=== PATIENT | female | born 1955 | race Caucasian/White ===

== ENCOUNTER 2016-09-13 20:47 | Inpatient (IN) | payer MEDICARE, OTHER ==
[2016-09-13 20:49] VITALS: BMI 22.8
[2016-09-13] MEDS ORDERED: Morphine 4 mg/ml ISec IVP STA (21:17)
[2016-09-13] MEDS ORDERED: Sodium Chloride 0.9% 1,000 ML IV SCH (21:30)
[2016-09-13 21:38] LABS: BASO # 0.02 K/mm3 (0.0-2.0); BASO % 0.2 % (0.0-3.0); EOS # 0.6 (0.0-0.7); EOS % 5.4 % (1.5-5.0); GRAN % 57.1 % (50.0-68.0); LYMPH # 3.4 (1.2-3.4); LYMPH % 31.4 % (22.0-35.0); MEAN CELL VOLUME 81.1 fL (80.0-105.0); MEAN CORPUSCULAR HEMOGLOBIN 27.6 pg (25.0-35.0); MEAN PLATELET VOLUME 8.4 fl (7.0-11.0); MONO # 0.6 (0.1-0.6); MONO % 5.9 % (1.0-6.0); PLATELET COUNT 245 10^3/uL (120.0-450.0); RBC 4.71 10^6/uL (3.5-6.1); RED CELL DISTRIBUTION WIDTH 14.3 % (11.5-14.5); WHITE BLOOD COUNT 10.7 10^3/ul (4.5-11.0)
[2016-09-13 21:39] LABS: ALB/GLOB RATIO 1.1 (1.1-1.8); ALBUMIN 4.4 g/dL (3.0-4.8); ALT/SGPT 24 U/L (7-56); AST/SGOT 18 U/L (15-39); BLOOD UREA NITROGEN 21 mg/dL (7-21); CALCIUM 9.6 mg/dL (8.4-10.5); GFR AFRICAN-AMERICAN > 60; GFR NON-AFRICAN AMERICAN > 60
--- NOTE | 2016-09-13 21:39 | ED PDOC ---
Arrival/HPI - General Chief Complaint: Chest Pain Time Seen by Provider: 09/13/16 21:05 Historian: Patient - History of Present Illness Narrative History of Present Illness (Text): 09/13/16 21:23 A 61 year old female presents to the emergency department complaining of right upper quadrant abdominal pain for the past three days, worsening this evening. Patient reports associated nausea, vomiting and notes pain radiates to chest. She notes she doesn't eat when gets pain because is afraid to. Patient reports same pain since 4 years ago. Patient was told she has a pancreatic mass. Had a biopsy done at [facility], was told she had cancer. However, she went to [facility] in [place], and was told it wasn't cancer. Patient had no further follow up in 3 years. Denies any fevers or any other complaints at this time. Time/Duration: Other (3 days) Symptom Onset: Sudden Symptom Course: Unchanged Activities at Onset: Rest Context: Home Associated Symptoms (Text): nausea, vomiting Past Medical History - Provider Review Nursing Documentation Reviewed: Yes - Infectious Disease Hx of Infectious Diseases: None - Tetanus Immunization Tetanus Immunization: Unknown - Cardiac Hx Cardiac Disorders: No - Pulmonary Hx Respiratory Disorders: No - Neurological Hx Neurological Disorder: No - HEENT Hx HEENT Disorder: No - Renal Hx Renal Disorder: No - Endocrine/Metabolic Hx Endocrine Disorders: Yes Hx Diabetes Mellitus Type 1: Yes Hx Diabetes Mellitus Type 2: Yes - Hematological/Oncological Hx Blood Disorders: No - Integumentary Hx Dermatological Disorder: No - Musculoskeletal/Rheumatological Hx Musculoskeletal Disorders: Yes Hx Arthritis: Yes - Gastrointestinal Hx Gastrointestinal Disorders: Yes Other/Comment: RECTAL BLEEDING - Genitourinary/Gynecological Hx Genitourinary Disorders: No - Psychiatric Hx Psychophysiologic Disorder: No Hx Substance Use: No - Past Surgical History Past Surgical History: No Previous - Surgical History Other/Comment: RIGHT CHEST MARIA FERNANDA CATHETER - Anesthesia Hx Anesthesia: Yes Hx Anesthesia Reactions: No Hx Malignant Hyperthermia: No - Suicidal Assessment Feels Threatened In Home Enviroment: No Family/Social History - Physician Review Nursing Documentation Reviewed: Yes Family/Social History: No Known Family HX Smoking Status: Never Smoked Hx Alcohol Use: No Hx Substance Use: No Allergies/Home Meds Allergies/Adverse Reactions: Allergies No Known Allergies Allergy (Verified 09/13/16 20:49) Home Medications: Home Meds Medication Instructions Recorded Confirmed Metformin HCl [Metformin] 1,000 mg PO BID 05/19/12 09/13/16 Empagliflozin [Jardiance] 10 mg PO DAILY 01/24/15 09/13/16 Gabapentin 600 mg PO DAILY 01/24/15 09/13/16 Insulin Aspart, Recombinant 0 units SUBCUT ACHS 09/13/16 09/13/16 [Novolog] Review of Systems - Physician Review All systems were reviewed & negative as marked: Yes - Review of Systems Constitutional: absent: Fevers Cardiovascular: Chest Pain Gastrointestinal: Abdominal Pain, Nausea, Vomiting Physical Exam Vital Signs Reviewed: Yes Vital Signs Temp Pulse Resp BP Pulse Ox 09/14/16 00:10 70 18 118/73 97 09/13/16 22:47 73 18 115/72 99 09/13/16 20:53 98.2 F 100 H 20 120/74 99 Temperature: Afebrile Blood Pressure: Normal Pulse: Regular Respiratory Rate: Normal Appearance: Positive for: Well-Appearing, Non-Toxic, Comfortable Pain Distress: None Mental Status: Positive for: Alert and Oriented X 3 - Systems Exam Head: Present: Atraumatic, Normocephalic Pupils: Present: PERRL Extroacular Muscles: Present: EOMI Conjunctiva: Present: Normal Mouth: Present: Moist Mucous Membranes Neck: Present: Normal Range of Motion Respiratory/Chest: Present: Clear to Auscultation, Good Air Exchange. No: Respiratory Distress, Accessory Muscle Use Cardiovascular: Present: Regular Rate and Rhythm, Normal S1, S2. No: Murmurs Abdomen: Present: Tenderness (RUQ), Normal Bowel Sounds. No: Distention, Peritoneal Signs Back: Present: Normal Inspection Upper Extremity: Present: Normal Inspection. No: Cyanosis, Edema Lower Extremity: Present: Normal Inspection. No: Edema Neurological: Present: GCS=15, CN II-XII Intact, Speech Normal Skin: Present: Warm, Dry, Normal Color. No: Rashes Psychiatric: Present: Alert, Oriented x 3, Normal Insight, Normal Concentration Medical Decision Making ED Course and Treatment: 09/13/16 21:21 EKG: Ordered, reviewed, and independently interpreted the EKG. Rate : 93 BPM Rhythm : NSR Interpretation : Normal axis, no acute ischemia CT Abdomen and Pelvis With Intravenous Contrast FINDINGS: Lower thorax: Minimal atelectasis. ABDOMEN: Liver: Unremarkable. No mass. Gallbladder and bile ducts: No calcified stones. No ductal dilation. Pancreas: Several calcifications within pancreas. Apparent minimal haziness about pancreas. No definite pancreatic necrosis. No discrete peripancreatic collection. No ductal dilation. Spleen: No splenomegaly. Adrenals: 1.1 x 1.1 x 1.0 cm lesion within RIGHT adrenal gland, indeterminate by CT criteria. Kidneys and ureters: No mass. No hydronephrosis. Stomach and bowel: No definite mural thickening. Few minimally distended loops of small bowel, likely ileus. Appendix: Normal caliber. No inflammation. PELVIS: Bladder: Unremarkable. Reproductive: Several small calcifications within uterus. ABDOMEN and PELVIS: Intraperitoneal space: No significant fluid collection. No free air. Bones/joints: No acute fracture. Soft tissues: Tiny umbilical hernia containing fat. Vasculature: Minimal atherosclerotic disease of aorta. No aneurysm. Lymph nodes: No pathologically enlarged lymph nodes. IMPRESSION: 1. Probable acute on chronic pancreatitis. Correlate with amylase/lipase levels. 2. Adrenal lesion, indeterminate. Recommend nonemergent MRI. 3. Probable fibroid uterus. 4. Incidental/non-acute findings are described above. Dictated and Authenticated by: Jason Palma MD 09/13/2016 11:02 PM Eastern Time ([place] & [place]) - Lab Interpretations Lab Results: 09/13/16 21:10 09/13/16 21:10 Lab Results 09/13/16 21:10: Sodium 136, Potassium 4.1, Chloride 101, Carbon Dioxide 22, Anion Gap 17, BUN 21, Creatinine 0.6, Est GFR ( Amer) > 60, Est GFR (Non- Af Amer) > 60, Random Glucose 278 H, Calcium 9.6, Total Bilirubin 0.4, AST 18, ALT 24, Alkaline Phosphatase 101, Troponin I < 0.01, Total Protein 8.6 H, Albumin 4.4, Globulin 4.1, Albumin/Globulin Ratio 1.1, Lipase 10311 H 09/13/16 21:10: WBC 10.7, RBC 4.71, Hgb 13.0, Hct 38.2, MCV 81.1, MCH 27.6, MCHC 34.0, RDW 14.3, Plt Count 245, MPV 8.4, Gran % 57.1, Lymph % (Auto) 31.4, Hooker % (Auto) 5.9, Eos % (Auto) 5.4 H, Baso % (Auto) 0.2, Gran # 6.10, Lymph # 3.4, Hooker # 0.6, Eos # 0.6, Baso # 0.02 I have reviewed the lab results: Yes - RAD Interpretation Radiology Orders: 09/13/16 21:16 ABD & PELVIS IV CONTRAST ONLY [CT] Stat - EKG Interpretation Interpreted by ED Physician: Yes Type: 12 lead EKG - Medication Orders Current Medication Orders: Acetaminophen (Tylenol 325mg Tab) 650 mg PO Q6H PRN PRN Reason: Headache Lactated Ringer's (Lactated Ringer's) 1,000 mls @ 100 mls/hr IV .Q10H [facility] Last Admin: 09/16/16 09:57 Dose: 100 mls/hr Insulin Human Lispro (Humalog Low) 0 units SC ACHS [facility] PRN Reason: Protocol Last Admin: 09/15/16 21:48 Dose: Not Given Non-Admin Reason: Blood Sugar Parameter Morphine Sulfate (Morphine) 2 mg IVP Q6H PRN PRN Reason: Pain, moderate (4-7) Ondansetron HCl (Zofran Inj) 4 mg IVP Q6H PRN PRN Reason: Nausea/Vomiting Last Admin: 09/16/16 09:51 Dose: 4 mg Pantoprazole Sodium (Protonix Inj) 40 mg IVP DAILY [facility] Last Admin: 09/16/16 10:04 Dose: 40 mg Discontinued Medications Gadodiamide (Omniscan No Safepak) Confirm Administered Dose 4,305 mg IV .STK- MED ONE Stop: 09/15/16 10:28 Sodium Chloride (Sodium Chloride 0.9%) 1,000 mls @ 100 mls/hr IV .Q10H [facility] Last Admin: 09/13/16 22:04 Dose: 100 mls/hr Dextrose/Lactated Ringer's (Dextrose 5%/Lactated Ringer's) 1,000 mls @ 200 mls/ hr IV .Q5H [facility] Lactated Ringer's (Lactated Ringer's) 1,000 mls @ 200 mls/hr IV .Q5H [facility] Last Admin: 09/14/16 11:17 Dose: 200 mls/hr Lactated Ringer's (Lactated Ringer's) 1,000 mls @ 150 mls/hr IV .Q6H40M [facility] Last Admin: 09/15/16 02:50 Dose: 150 mls/hr Iohexol (Omnipaque 350 100 Ml) Confirm Administered Dose 350 mg .ROUTE .STK-MED ONE Stop: 09/13/16 21:58 Morphine Sulfate (Morphine) 4 mg IVP STAT STA Stop: 09/13/16 21:18 Last Admin: 09/13/16 22:03 Dose: 4 mg Re-Assess: JIMENA Pain Assessment Document 09/13/16 23:03 JOL (Rec: 09/13/16 23:50 JOL [id number]) Pain Reassessment Is this a pain reassessment? Yes Sleep Is patient sleeping during reassessment? No Presence of Pain Presence of Pain Yes Description Intensity of Pain at present 2 Ondansetron HCl (Zofran Inj) 4 mg IVP ONCE ONE Stop: 09/13/16 21:18 Last Admin: 09/13/16 22:03 Dose: 4 mg - Scribe Statement The provider has reviewed the documentation as recorded by the Gregg Fisher Provider Scribe Attestation: All medical record entries made by the Gregg were at my direction and personally dictated by me. I have reviewed the chart and agree that the record accurately reflects my personal performance of the history, physical exam, medical decision making, and the department course for this patient. I have also personally directed, reviewed, and agree with the discharge instructions and disposition. Disposition/Present on Arrival - Present on Arrival Any Indicators Present on Arrival: No History of DVT/PE: No History of Uncontrolled Diabetes: No Urinary Catheter: No History of Decub. Ulcer: No History Surgical Site Infection Following: None - Disposition Have Diagnosis and Disposition been Completed?: Yes Diagnosis: Pancreatitis Disposition: HOSPITALIZED Disposition Time: 22:35 Condition: STABLE
[2016-09-13] MEDS ORDERED: Iohexol 350 MG/100 ML VIAL ONE (21:57)
[2016-09-13 22:01] LABS: TROPONIN I < 0.01 ng/mL
[2016-09-13 22:12] LABS: LIPASE 13016 U/L (23-300)
--- NOTE | 2016-09-13 23:02 | CT ---
EXAM: CT Abdomen and Pelvis With Intravenous Contrast CLINICAL HISTORY: 61 years old, female; Pain; Abdominal pain; Localized; Upper TECHNIQUE: Axial computed tomography images of the abdomen and pelvis with intravenous contrast. This CT exam was performed using one or more of the following dose reduction techniques: automated exposure control, adjustment of the mA and/or kV according to patient size, and/or use of iterative reconstruction technique. Coronal and sagittal reformatted images were created and reviewed. CONTRAST: 100 mL of OMNI administered intravenously. COMPARISON: No relevant prior studies available. FINDINGS: Lower thorax: Minimal atelectasis. ABDOMEN: Liver: Unremarkable. No mass. Gallbladder and bile ducts: No calcified stones. No ductal dilation. Pancreas: Several calcifications within pancreas. Apparent minimal haziness about pancreas. No definite pancreatic necrosis. No discrete peripancreatic collection. No ductal dilation. Spleen: No splenomegaly. Adrenals: 1.1 x 1.1 x 1.0 cm lesion within RIGHT adrenal gland, indeterminate by CT criteria. Kidneys and ureters: No mass. No hydronephrosis. Stomach and bowel: No definite mural thickening. Few minimally distended loops of small bowel, likely ileus. Appendix: Normal caliber. No inflammation. PELVIS: Bladder: Unremarkable. Reproductive: Several small calcifications within uterus. ABDOMEN and PELVIS: Intraperitoneal space: No significant fluid collection. No free air. Bones/joints: No acute fracture. Soft tissues: Tiny umbilical hernia containing fat. Vasculature: Minimal atherosclerotic disease of aorta. No aneurysm. Lymph nodes: No pathologically enlarged lymph nodes. IMPRESSION: 1. Probable acute on chronic pancreatitis. Correlate with amylase/lipase levels. 2. Adrenal lesion, indeterminate. Recommend nonemergent MRI. 3. Probable fibroid uterus. 4. Incidental/non-acute findings are described above.
[2016-09-13] MEDS ORDERED: Dextrose 5%/Lactated Ringer's 1,000 ML IV SCH (23:06)
--- NOTE | 2016-09-13 23:08 | CP.PCM.HP ---
<Kiley Boudreaux - Last Filed: 09/13/16 23:49> History of Present Illness - History of Present Illness History of Present Illness: CC: abdominal pain for 3 days HPI: 61 yo female PMHx of IDDM presents with abdominal pain worsening over 3 days. Patient reports pain has been progressively becoming worse and prior to presentation to ER pain was 10/10. She had two nonbloody nonbilious episodes of emesis. Patient reports she is afraid to eat. She denies any associated diarrhea or constipation. Patient reports that on her last visit to [facility] she was diagnosed with pancreatic ca and had a portacath placed; however upon receiving a second opinion at [facility] she was told she does not have pancreatic ca and thus did not have any chemotherapy. Patient denied fever, chills, weight changes, change in vision/hearing, sore throat, chest pain, palpitations, SOB, cough, bowel/bladder complaints, pain/swelling in legs, sick contacts, recent illnesses, recent travel. Last meal: this afternoon Last BM: this AM PMD: Garett Lepe- last seen 2 months ago PMHx: IDDM and diverticulosis?hemorrhoids? PSurgHx: denies PProcedures: Colonoscopy 2016- patient does not recall if there were any polyps found Family Hx: denies hx of HI, CVA, ca Social Hx: denies EtOH abuse, tobacco abuse, drug abuse; lives with daughter; retired Meds: Jardiance po daily, Insulin, Metformin 500mg po bid Allergies: NKDA ROS: denied: fever, chills, weight changes, change in vision/hearing, sore throat, chest pain, palpitations, SOB, cough, bowel/bladder complaints, pain/swelling in legs, sick contacts, recent illnesses, recent travel admitted: abdominal pain, nausea, vomiting, headache, dizziness, weakness Present on Admission - Present on Admission Any Indicators Present on Admission: No Review of Systems - Constitutional Constitutional: As Per HPI. absent: Chills, Fever - EENT Eyes: As Per HPI. absent: Blurred Vision Ears: As Per HPI, Dizziness Nose/Mouth/Throat: As Per HPI. absent: Sore Throat - Cardiovascular Cardiovascular: As Per HPI. absent: Chest Pain, Dyspnea, Dyspnea on Exertion, Edema, Leg Edema, Palpitations - Respiratory Respiratory: As Per HPI. absent: Cough, Dyspnea, Dyspnea on Exertion, Wheezing - Gastrointestinal Gastrointestinal: As Per HPI, Abdominal Pain, Cramping, Hematochezia, Nausea, Vomiting. absent: Constipation, Diarrhea, Melena - Genitourinary Genitourinary: As Per HPI. absent: Dysuria, Hematuria, Pyuria - Musculoskeletal Musculoskeletal: As Per HPI. absent: Numbness, Tingling - Integumentary Integumentary: As Per HPI. absent: Dry Skin, Rash - Neurological Neurological: As Per HPI. absent: Dizziness, Numbness, Tingling, Weakness - Psychiatric Psychiatric: As Per HPI. absent: Anxiety, Depression - Endocrine Endocrine: As Per HPI. absent: Polydipsia, Polyphagia, Polyuria - Hematologic/Lymphatic Hematologic: As Per HPI. absent: Easy Bleeding, Easy Bruising, Lymphadenopathy Past Patient History - Infectious Disease Hx of Infectious Diseases: None - Tetanus Immunizations Tetanus Immunization: Unknown - Past Medical History & Family History Past Medical History?: Yes - Past Social History Smoking Status: Never Smoked - CARDIAC Hx Cardiac Disorders: No - PULMONARY Hx Respiratory Disorders: No - NEUROLOGICAL Hx Neurological Disorder: No - HEENT Hx HEENT Problems: No - RENAL Hx Chronic Kidney Disease: No - ENDOCRINE/METABOLIC Hx Endocrine Disorders: Yes Hx Diabetes Mellitus Type 1: Yes Hx Diabetes Mellitus Type 2: Yes - HEMATOLOGICAL/ONCOLOGICAL Hx Blood Disorders: No - INTEGUMENTARY Hx Dermatological Problems: No - MUSCULOSKELETAL/RHEUMATOLOGICAL Hx Musculoskeletal Disorders: Yes Hx Arthritis: Yes - GASTROINTESTINAL Hx Gastrointestinal Disorders: Yes Other/Comment: RECTAL BLEEDING - GENITOURINARY/GYNECOLOGICAL Hx Genitourinary Disorders: No - PSYCHIATRIC Hx Psychophysiologic Disorder: No Hx Substance Use: No - SURGICAL HISTORY Other/Comment: RIGHT CHEST MARIA FERNANDA CATHETER - ANESTHESIA Hx Anesthesia: Yes Hx Anesthesia Reactions: No Hx Malignant Hyperthermia: No Meds Allergies/Adverse Reactions: Allergies Allergy/AdvReac Type Severity Reaction Status Date / Time No Known Allergies Allergy Verified 09/13/16 20:49 Physical Exam - Constitutional Appears: In Acute Distress - Head Exam Head Exam: ATRAUMATIC, NORMOCEPHALIC - Eye Exam Eye Exam: EOMI, Normal appearance, PERRL. absent: Conjunctival injection, Scleral icterus Pupil Exam: NORMAL ACCOMODATION - ENT Exam ENT Exam: Mucous Membranes Dry - Neck Exam Neck exam: Positive for: Full Rom, Normal Inspection - Respiratory Exam Respiratory Exam: Clear to Auscultation Bilateral, NORMAL BREATHING PATTERN. absent: Accessory Muscle Use, Rales, Rhonchi, Wheezes, Respiratory Distress - Cardiovascular Exam Cardiovascular Exam: Tachycardia, REGULAR RHYTHM, +S1, +S2. absent: Systolic Murmur - GI/Abdominal Exam GI & Abdominal Exam: Guarding, Normal Bowel Sounds, Soft, Tenderness (RUQ and RLQ to light palpation). absent: Distended, Firm, Hernia - Extremities Exam Extremities exam: Positive for: normal capillary refill, normal inspection, pedal pulses present. Negative for: pedal edema - Neurological Exam Neurological exam: Alert, Oriented x3 - Psychiatric Exam Psychiatric exam: Normal Affect, Normal Mood - Skin Skin Exam: Dry, Intact, Normal Color, Warm Results - Vital Signs Recent Vital Signs: Last Vital Signs Temp 98.2 F 09/13/16 20:53 Pulse 100 H 09/13/16 20:53 Resp 20 09/13/16 20:53 BP 120/74 09/13/16 20:53 Pulse Ox 99 09/13/16 20:53 - Labs Result Diagrams: 09/13/16 21:10 09/13/16 21:10 Assessment & Plan - Assessment and Plan (Free Text) Assessment: 61 yo female PMHx of IDDM presents with abdominal pain worsening over 3 days Plan: Acute pancreatitis -NPO -CT Abd/pelvis with IV contrast: acute on chronic pancreatitis -Lipase [id number] -f/u amylase -trend BUN -LR @ 200cc/hr -Morphine 2mg ivp q6 prn pain -f/u LDH to calculate Hull's score on admission -f/u Hull's score in 48hrs -f/u TG -GI consult: Dr. Hudson- f/u reccs Hx of IDDM -Accucheck -low dose RISS as patient is NPO and on LR -adjust medications as needed -f/u HgbA1c Hx of Diverticulosis vs Hemorrhoids -patient is unsure of history but reports she sometimes has blood in stool -H&H stable -f/u FOBT -GI consult: Dr. Hudson- f/u reccs Adrenal lesion -CT Abd/pelvis with IV contrast: adrenal lesion- recommend nonemergent MRI [1.1 x 1.1 x 1.0cm lesion within RIGHT adrenal gland] -f/u outpatient Probable fibroid uterus -CT Abd/pelvis with IV contrast: probable fibroid uterus [several small calcifications within uterus] -f/u outpatient PPX -NPO -LR @ 200cc/hr -Protonix 40mg ivp daily -SCDs Case discussed with Dr. Shannan Boudreaux PGY2 Pager: <Mo Campbell - Last Filed: 09/14/16 03:15> Results - Vital Signs Recent Vital Signs: Last Vital Signs Temp 98.0 F 09/14/16 01:57 Pulse 75 09/14/16 01:57 Resp 20 09/14/16 01:57 BP 117/74 09/14/16 01:57 Pulse Ox 98 09/14/16 01:22 - Labs Result Diagrams: 09/13/16 21:10 09/13/16 21:10 Labs: Laboratory Results - last 24 hr 09/14/16 00:10 Lactate Dehydrogenase 699 Attending/Attestation - Attestation I have personally seen and examined this patient.: Yes I have fully participated in the care of the patient.: Yes I have reviewed all pertinent clinical information: Yes Notes (Text): 09/14/16 03:14 Patient was seen when she was in [id number]. Agree with history , physical examination, assessment and plan.
[2016-09-13] MEDS ORDERED: Morphine 2 mg/ml ISec IVP PRN (23:09)
[2016-09-14] MEDS ORDERED: Lactated Ringer's 1,000 ML IV SCH (06:08)
[2016-09-14] MEDS: Insulin Lispro (humaLOG) LOW Coverage SC SCH ×4 (07:30→22:33)
[2016-09-14 07:49] LABS: BASO # 0.01 K/mm3 (0.0-2.0); BASO % 0.1 % (0.0-3.0); EOS # 0.5 (0.0-0.7); EOS % 6.4 % (1.5-5.0); GRAN # 4.38 (1.4-6.5); GRAN % 57.4 % (50.0-68.0); HEMOGLOBIN 11.3 gm/dL (12.0-16.0); LYMPH # 2.3 (1.2-3.4); LYMPH % 29.7 % (22.0-35.0); MEAN CELL VOLUME 81.3 fL (80.0-105.0); MEAN CORPUSCULAR HEMOGLOBIN 26.7 pg (25.0-35.0); MEAN CORPUSCULAR HGB CONC 32.8 g/dl (31.0-37.0); MEAN PLATELET VOLUME 8.7 fl (7.0-11.0); MONO # 0.5 (0.1-0.6); MONO % 6.4 % (1.0-6.0); PLATELET COUNT 228 10^3/uL (120.0-450.0); RBC 4.23 10^6/uL (3.5-6.1); RED CELL DISTRIBUTION WIDTH 14.4 % (11.5-14.5); WHITE BLOOD COUNT 7.6 10^3/ul (4.5-11.0)
[2016-09-14 08:10] LABS: ALBUMIN 3.5 g/dL (3.0-4.8); ALT/SGPT 17 U/L (7-56); AST/SGOT 15 U/L (15-39); BLOOD UREA NITROGEN 14 mg/dL (7-21); CALCIUM 8.5 mg/dL (8.4-10.5); GFR AFRICAN-AMERICAN > 60; GFR NON-AFRICAN AMERICAN > 60; MAGNESIUM 1.9 mg/dL (1.7-2.2)
--- NOTE | 2016-09-14 10:25 | CP.PCM.CON ---
History of Present Illness - History of Present Illness History of Present Illness: CC: Abdominal pain HPI: 61 year old female who presents for evaluation of abdominal pain. She says the pain is in the epigastric area. It is severe, now 6/10 improved a bit. Started 2-3 days ago. She did have a few episodes of vomiting. She had prior episode in 2012. She had questionable diagnosis of follicular lymphoma but this was worked up at [facility] and not found. She is feeling a bit better. denies etoh abuse. Denies chest pain or sob. No fever. No bleeding. No family history of pancreatitis. No prior abdominal surgery PMHx DM, Diverticulosis, H/o pancreatitis Pshx denies FHx denies pancreatic disease SHx no drinking, smoking, or drugs ROS A comprehensive review of systems was performed and was negative apart from HPI Past Patient History - Infectious Disease Hx of Infectious Diseases: None - Tetanus Immunizations Tetanus Immunization: Unknown - Past Medical History & Family History Past Medical History?: Yes - Past Social History Smoking Status: Never Smoked - CARDIAC Hx Cardiac Disorders: No - PULMONARY Hx Respiratory Disorders: No - NEUROLOGICAL Hx Neurological Disorder: No - HEENT Hx HEENT Problems: No - RENAL Hx Chronic Kidney Disease: No - ENDOCRINE/METABOLIC Hx Endocrine Disorders: Yes Hx Diabetes Mellitus Type 1: Yes Hx Diabetes Mellitus Type 2: Yes - HEMATOLOGICAL/ONCOLOGICAL Hx Blood Disorders: No - INTEGUMENTARY Hx Dermatological Problems: No - MUSCULOSKELETAL/RHEUMATOLOGICAL Hx Falls: No - GASTROINTESTINAL Hx Gastrointestinal Disorders: Yes Other/Comment: RECTAL BLEEDING - GENITOURINARY/GYNECOLOGICAL Hx Genitourinary Disorders: No - PSYCHIATRIC Hx Psychophysiologic Disorder: No - SURGICAL HISTORY Hx Surgeries: Yes Other/Comment: RIGHT CHEST MARIA FERNANDA CATHETER, that was since removed - ANESTHESIA Hx Anesthesia: Yes Hx Anesthesia Reactions: No Hx Malignant Hyperthermia: No Meds Allergies/Adverse Reactions: Allergies Allergy/AdvReac Type Severity Reaction Status Date / Time No Known Allergies Allergy Verified 09/13/16 20:49 - Medications Medications: Current Medications Lactated Ringer's (Lactated Ringer's) 1,000 mls @ 200 mls/hr IV .Q5H [facility] Insulin Human Lispro (Humalog Low) 0 units SC ACHS [facility] PRN Reason: Protocol Morphine Sulfate (Morphine) 2 mg IVP Q6H PRN PRN Reason: Pain, moderate (4-7) Ondansetron HCl (Zofran Inj) 4 mg IVP Q6H PRN PRN Reason: Nausea/Vomiting Pantoprazole Sodium (Protonix Inj) 40 mg IVP DAILY [facility] Physical Exam - Constitutional Appears: Well, No Acute Distress - Head Exam Head Exam: ATRAUMATIC, NORMOCEPHALIC - Eye Exam Eye Exam: Normal appearance Pupil Exam: PERRL - ENT Exam ENT Exam: Mucous Membranes Moist, Normal Oropharynx - Respiratory Exam Respiratory Exam: Clear to Auscultation Bilateral, NORMAL BREATHING PATTERN - Cardiovascular Exam Cardiovascular Exam: REGULAR RHYTHM, +S1, +S2 - GI/Abdominal Exam GI & Abdominal Exam: Soft, Tenderness - Neurological Exam Neurological exam: Alert, Oriented x3 - Psychiatric Exam Psychiatric exam: Normal Affect, Normal Mood - Skin Skin Exam: Dry, Normal Color, Warm Results - Vital Signs Recent Vital Signs: Last Vital Signs Temp 97.6 F 09/14/16 08:27 Pulse 72 09/14/16 08:27 Resp 20 09/14/16 08:27 BP 93/58 L 09/14/16 08:27 Pulse Ox 98 09/14/16 08:27 - Labs Result Diagrams: 09/14/16 07:42 09/14/16 07:42 Labs: Laboratory Results - last 24 hr 09/14/16 09/14/16 09/14/16 00:10 07:42 07:42 WBC 7.6 D RBC 4.23 Hgb 11.3 L Hct 34.4 L MCV 81.3 MCH 26.7 MCHC 32.8 RDW 14.4 Plt Count 228 MPV 8.7 Gran % 57.4 Lymph % (Auto) 29.7 Reeves % (Auto) 6.4 H Eos % (Auto) 6.4 H Baso % (Auto) 0.1 Gran # 4.38 Lymph # 2.3 Reeves # 0.5 Eos # 0.5 Baso # 0.01 Sodium 139 Potassium 3.9 Chloride 108 H Carbon Dioxide 21 Anion Gap 14 BUN 14 Creatinine 0.5 Est GFR ( Amer) > 60 Est GFR (Non-Af Amer) > 60 Random Glucose 154 H Calcium 8.5 Phosphorus 4.2 Magnesium 1.9 Total Bilirubin 0.4 AST 15 ALT 17 Alkaline Phosphatase 78 Lactate Dehydrogenase 699 Total Protein 6.9 Albumin 3.5 Globulin 3.4 Albumin/Globulin Ratio 1.0 L Assessment & Plan - Assessment and Plan (Free Text) Assessment: 61 year old female with h/o pancreatitis, dm, diverticulosis admitted with acute pancreatitis. 1. Acute pancreatitis Plan: -npo -iv hydration with lr at 200cc/hr -bun downtrending -us abdomen to r/o gallstones -triglycerides should be checked -check igg4 -uncertain etiology -consider mrcp to eval for pancreas divisum -supportive measures -when feeling better, advance diet to low fat as tolerated - Date & Time Date: 09/14/16 Time: 10:25
--- NOTE | 2016-09-14 10:59 | CARD ---
APPROVED REPORT EKG Measurement Heart [id number] CO [id number] [id number] <Conclusion> Normal sinus rhythm Possible Left atrial enlargement NSSTW changes
[2016-09-14] MEDS: Lactated Ringer's 1,000 ML IV SCH ×2 (16:09→19:59)
--- NOTE | 2016-09-14 20:32 | CP.PCM.PN ---
Subjective - Date & Time of Evaluation Date of Evaluation: 09/14/16 Time of Evaluation: 10:50 Objective - Vital Signs/Intake and Output Vital Signs (last 24 hours): Temp Pulse Resp BP Pulse Ox 98 F 75 16 101/66 98 09/14/16 16:51 09/14/16 16:51 09/14/16 16:51 09/14/16 16:51 09/14/16 16:51 Intake and Output: 09/14/16 09/15/16 18:59 06:59 Intake Total 0 Balance 0 - Medications Medications: Current Medications Lactated Ringer's (Lactated Ringer's) 1,000 mls @ 150 mls/hr IV .Q6H40M [facility] Last Admin: 09/14/16 19:59 Dose: 150 mls/hr Insulin Human Lispro (Humalog Low) 0 units SC ACHS [facility] PRN Reason: Protocol Last Admin: 09/14/16 18:21 Dose: Not Given Morphine Sulfate (Morphine) 2 mg IVP Q6H PRN PRN Reason: Pain, moderate (4-7) Ondansetron HCl (Zofran Inj) 4 mg IVP Q6H PRN PRN Reason: Nausea/Vomiting Pantoprazole Sodium (Protonix Inj) 40 mg IVP DAILY [facility] Last Admin: 09/14/16 11:11 Dose: 40 mg - Labs Labs: 09/14/16 07:42 09/14/16 07:42
--- NOTE | 2016-09-14 22:48 | CP.PCM.PN ---
<Dinh Carpenter - Last Filed: 09/14/16 22:38> Subjective - Date & Time of Evaluation Date of Evaluation: 09/14/16 Time of Evaluation: 22:38 - Subjective Subjective: Pt seen and examined at bedside. Pt accompanied by her family at bedside. Pt states she has mild abdominal pain. Denies CP, SOB, N/V/D. Objective - Vital Signs/Intake and Output Vital Signs (last 24 hours): Temp Pulse Resp BP Pulse Ox 98 F 75 16 101/66 98 09/14/16 16:51 09/14/16 16:51 09/14/16 16:51 09/14/16 16:51 09/14/16 16:51 Intake and Output: 09/14/16 09/15/16 18:59 06:59 Intake Total 0 Balance 0 - Medications Medications: Current Medications Lactated Ringer's (Lactated Ringer's) 1,000 mls @ 150 mls/hr IV .Q6H40M [facility] Last Admin: 09/14/16 19:59 Dose: 150 mls/hr Insulin Human Lispro (Humalog Low) 0 units SC ACHS [facility] PRN Reason: Protocol Last Admin: 09/14/16 22:33 Dose: Not Given Morphine Sulfate (Morphine) 2 mg IVP Q6H PRN PRN Reason: Pain, moderate (4-7) Ondansetron HCl (Zofran Inj) 4 mg IVP Q6H PRN PRN Reason: Nausea/Vomiting Pantoprazole Sodium (Protonix Inj) 40 mg IVP DAILY [facility] Last Admin: 09/14/16 11:11 Dose: 40 mg - Labs Labs: 09/14/16 07:42 09/14/16 07:42 - Constitutional Appears: Non-toxic, No Acute Distress - Head Exam Head Exam: ATRAUMATIC, NORMAL INSPECTION, NORMOCEPHALIC - ENT Exam ENT Exam: Mucous Membranes Moist - Respiratory Exam Respiratory Exam: Clear to Ausculation Bilateral, NORMAL BREATHING PATTERN. absent: Rales, Rhonchi, Wheezes - Cardiovascular Exam Cardiovascular Exam: RRR, +S1, +S2 - GI/Abdominal Exam GI & Abdominal Exam: Soft, Tenderness (Epigastric), Normal Bowel Sounds - Extremities Exam Extremities Exam: absent: Calf Tenderness, Pedal Edema - Neurological Exam Neurological Exam: Alert, Awake, Oriented x3 - Psychiatric Exam Psychiatric exam: Normal Affect, Normal Mood - Skin Skin Exam: Intact, Normal Color, Warm Assessment and Plan - Assessment and Plan (Free Text) Plan: 61 y/o F with PMH of chronic pancreatitis IDDM presents with acute pancreatitis. Pt will remain on LR for IVF. Pt seen by GI who recommend US abdomen and MRCP. 1. Acute pancreatitis -Liquid diet, advance as tolerated -Repeat lipase in AM -LR @ 150 cc/hr -IGG4 ordered -Continue pain management with -GI consult: Dr. Hudson 2. IDDM -ISS 3. Adrenal lesion -CT Abd/pelvis with IV contrast: right adrenal lesion- recommend nonemergent MRI -f/u outpatient 4. Fibroid uterus -CT Abd/pelvis with IV contrast: probable fibroid uterus -f/u outpatient 5. PPX -Protonix -SCDs Seen, reviewed, and discussed with attending Jayden PGY-2 <Mei Davis - Last Filed: 09/15/16 20:48> Objective - Vital Signs/Intake and Output Vital Signs (last 24 hours): Temp Pulse Resp BP Pulse Ox 97.8 F 71 18 112/65 96 09/15/16 16:34 09/15/16 16:34 09/15/16 16:34 09/15/16 16:34 09/15/16 16:34 Intake and Output: 09/15/16 09/16/16 18:59 06:59 Intake Total 2069 Balance 2069 - Medications Medications: Current Medications Acetaminophen (Tylenol 325mg Tab) 650 mg PO Q6H PRN PRN Reason: Headache Lactated Ringer's (Lactated Ringer's) 1,000 mls @ 100 mls/hr IV .Q10H [facility] Last Admin: 09/15/16 11:47 Dose: 100 mls/hr Insulin Human Lispro (Humalog Low) 0 units SC ACHS [facility] PRN Reason: Protocol Last Admin: 09/15/16 16:59 Dose: 3 units Morphine Sulfate (Morphine) 2 mg IVP Q6H PRN PRN Reason: Pain, moderate (4-7) Ondansetron HCl (Zofran Inj) 4 mg IVP Q6H PRN PRN Reason: Nausea/Vomiting Pantoprazole Sodium (Protonix Inj) 40 mg IVP DAILY [facility] Last Admin: 09/15/16 11:09 Dose: 40 mg - Labs Labs: 09/15/16 07:00 09/15/16 07:00 Attending/Attestation - Attestation I have personally seen and examined this patient.: Yes I have fully participated in the care of the patient.: Yes I have reviewed all pertinent clinical information, including history, physical exam and plan: Yes Notes (Text): 09/15/16 20:46 Patient seen and examined at bedside. Admission notes, labs, vitals and orders reviewed. Symptoms are slightly better but still has some abdominal pain. Previous admission notes and work up reviewed, case d/w GI service. Plan to advance diet slowly and obtain an MRCP in AM. Agree with the plan of care outlined by the resident.
[2016-09-15] MEDS: Lactated Ringer's 1,000 ML IV SCH ×3 (02:50→21:47)
[2016-09-15 08:00] LABS: HEMOGLOBIN 11.9 gm/dL (12.0-16.0); MEAN CELL VOLUME 81.5 fL (80.0-105.0); MEAN CORPUSCULAR HEMOGLOBIN 26.8 pg (25.0-35.0); MEAN CORPUSCULAR HGB CONC 32.9 g/dl (31.0-37.0); MEAN PLATELET VOLUME 8.6 fl (7.0-11.0); RBC 4.44 10^6/uL (3.5-6.1); RED CELL DISTRIBUTION WIDTH 14.3 % (11.5-14.5); WHITE BLOOD COUNT 7.8 10^3/ul (4.5-11.0)
[2016-09-15] MEDS: Insulin Lispro (humaLOG) LOW Coverage SC SCH ×4 (08:05→21:48)
[2016-09-15] MEDS ORDERED: Gadodiamide 287 MG/ML VIAL (15ML) IV ONE (10:27)
[2016-09-15 10:44] LABS: ALB/GLOB RATIO 1.1 (1.1-1.8); ALBUMIN 3.8 g/dL (3.0-4.8); ALT/SGPT 17 U/L (7-56); AST/SGOT 27 U/L (15-39); BLOOD UREA NITROGEN 10 mg/dL (7-21); CALCIUM 9.1 mg/dL (8.4-10.5); GFR AFRICAN-AMERICAN > 60; GFR NON-AFRICAN AMERICAN > 60
--- NOTE | 2016-09-15 11:39 | CP.PCM.PN ---
<Hammad Carney - Last Filed: 09/15/16 11:35> Subjective - Date & Time of Evaluation Date of Evaluation: 09/15/16 Time of Evaluation: 07:15 - Subjective Subjective: PGY5 GI Fellow Progress Note Patient seen and examined bedside this morning. The patient states that she is feeling slightly better but continues to have epigastric abdominal pain. She denies any nausea, vomiting. Eager to try more liquids today. No BM overnight. 12 system ROS performed and negative except where stated. Objective - Vital Signs/Intake and Output Vital Signs (last 24 hours): Temp Pulse Resp BP Pulse Ox 97.9 F 70 20 115/67 98 09/15/16 08:00 09/15/16 08:00 09/15/16 08:00 09/15/16 08:00 09/15/16 08:00 Intake and Output: 09/15/16 09/15/16 06:59 18:59 Intake Total 420 Output Total 1 Balance 419 - Medications Medications: Current Medications Lactated Ringer's (Lactated Ringer's) 1,000 mls @ 100 mls/hr IV .Q10H [facility] Insulin Human Lispro (Humalog Low) 0 units SC ACHS [facility] PRN Reason: Protocol Last Admin: 09/15/16 08:05 Dose: Not Given Morphine Sulfate (Morphine) 2 mg IVP Q6H PRN PRN Reason: Pain, moderate (4-7) Ondansetron HCl (Zofran Inj) 4 mg IVP Q6H PRN PRN Reason: Nausea/Vomiting Pantoprazole Sodium (Protonix Inj) 40 mg IVP DAILY [facility] Last Admin: 09/15/16 11:09 Dose: 40 mg - Labs Labs: 09/15/16 07:00 09/15/16 07:00 - Constitutional Appears: Non-toxic, No Acute Distress - Eye Exam Eye Exam: EOMI, PERRL - ENT Exam ENT Exam: Mucous Membranes Moist - Respiratory Exam Respiratory Exam: Clear to Ausculation Bilateral. absent: Rales, Rhonchi, Wheezes - Cardiovascular Exam Cardiovascular Exam: RRR, +S1, +S2 - GI/Abdominal Exam GI & Abdominal Exam: Soft, Tenderness (epigastric), Normal Bowel Sounds. absent : Distended, Firm, Guarding, Rigid, Organomegaly - Extremities Exam Extremities Exam: Normal Inspection. absent: Pedal Edema - Neurological Exam Neurological Exam: Alert, Awake, Oriented x3 - Psychiatric Exam Psychiatric exam: Normal Affect, Normal Mood - Skin Skin Exam: Dry, Warm Assessment and Plan - Assessment and Plan (Free Text) Assessment: Patient is a 61yo female with PMHx significant for pancreatitis, DM, diverticulosis who was admitted with 3 days of abdominal pain. -Acute pancreatitis Plan: -Advance to clear liquid diet -Continue IVF with LR@100cc/hr as ordered -Plan for MRCP today, R/O pancreas divisum -Awaiting AM lab work: TGs, CBC, CMP -IgG4 sent -U/S performed - no evidence of gallstones per my interpretation -Supportive care <Keny Sung - Last Filed: 09/15/16 13:49> Objective - Vital Signs/Intake and Output Vital Signs (last 24 hours): Temp Pulse Resp BP Pulse Ox 97.9 F 70 20 115/67 98 09/15/16 08:00 09/15/16 08:00 09/15/16 08:00 09/15/16 08:00 09/15/16 08:00 Intake and Output: 09/15/16 09/15/16 06:59 18:59 Intake Total 420 Output Total 1 Balance 419 - Medications Medications: Current Medications Acetaminophen (Tylenol 325mg Tab) 650 mg PO Q6H PRN PRN Reason: Headache Lactated Ringer's (Lactated Ringer's) 1,000 mls @ 100 mls/hr IV .Q10H [facility] Last Admin: 09/15/16 11:47 Dose: 100 mls/hr Insulin Human Lispro (Humalog Low) 0 units SC ACHS [facility] PRN Reason: Protocol Last Admin: 09/15/16 11:46 Dose: Not Given Morphine Sulfate (Morphine) 2 mg IVP Q6H PRN PRN Reason: Pain, moderate (4-7) Ondansetron HCl (Zofran Inj) 4 mg IVP Q6H PRN PRN Reason: Nausea/Vomiting Pantoprazole Sodium (Protonix Inj) 40 mg IVP DAILY [facility] Last Admin: 09/15/16 11:09 Dose: 40 mg - Labs Labs: 09/15/16 07:00 09/15/16 07:00 Attending/Attestation - Attestation I have personally seen and examined this patient.: Yes I have fully participated in the care of the patient.: Yes I have reviewed all pertinent clinical information, including history, physical exam and plan: Yes Notes (Text): 09/15/16 13:47 61 year old female with h/o pancreatitis, dm, diverticulosis admitted with acute pancreatitis. 1. Acute pancreatitis Plan: -s/p aggressive iv hydration -advance diet to low fat as tolerated -us negative for gallstones -MRI with no evidence of pancreatic mass -reviewed MRCP myself, although not reported, the dorsal and ventral pancreatic duct do not appear to be continuous, raising the possibility of pancreas divisum , although not definitive -triglycerides are normal -await igg4 -recommend outpatient EUS
--- NOTE | 2016-09-15 12:56 | US ---
HISTORY: r/o gallstones COMPARISON: CT abdomen pelvis 09/13/2016 TECHNIQUE: Sonographic evaluation of the abdomen. FINDINGS: LIVER: Liver is unremarkable in echogenicity. No focal liver mass is identified. No intrahepatic biliary ductal dilatation is identified. Portal vein is patent with normal hepatopetal flow. GALLBLADDER: The gallbladder is physiologically distended. No gallstones, gallbladder wall thickening, or pericholecystic fluid is identified.No sonographic Fagan's sign was appreciated during the exam. COMMON BILE DUCT: Normal in caliber measuring 0.3 cm. PANCREAS: The visualized portions are mildly heterogeneous in echogenicity. Calcifications noted in the pancreas. The remainder of the pancreas is obscured by bowel gas. RIGHT KIDNEY: Measures 10.5cm. Unremarkable in echogenicity. No shadowing renal stone, cyst, or hydronephrosis is identified AORTA: No aneurysmal dilatation of the visualized portions. IVC: Visualized portions are unremarkable.. OTHER FINDINGS: None. IMPRESSION: Mildly heterogeneous pancreas, nonspecific. Calcifications noted in the pancreas, likely sequelae of chronic pancreatitis.
--- NOTE | 2016-09-15 13:30 | MRI ---
PROCEDURE: MRI Abdomen with and without contrast plus MRCP HISTORY: Acute pancreatitis COMPARISON: None available. TECHNIQUE: Multisequence, multiplanar MR images of the abdomen with and without gadolinium contrast enhancement. 15 cc of Omniscan FINDINGS: LIVER: Severe fatty infiltration of the liver GALLBLADDER: The gallbladder is unremarkable. The common bile duct is normal in caliber. No stones visualized SPLEEN: Unremarkable. PANCREAS: Unremarkable. ADRENALS: 1 cm right adrenal nodule shows diminished intensity on out of phase imaging. Findings are consistent with an adrenal adenoma KIDNEYS: Unremarkable. AORTA: No aneurysm. ASCITES: None. PERITONEUM: Unremarkable. LYMPH NODES: Unremarkable. OTHER FINDINGS: None. IMPRESSION: Severe fatty infiltration of the liver. Normal gallbladder and common duct. The pancreas is unremarkable
--- NOTE | 2016-09-15 13:52 | CP.PCM.PN ---
<Yeimi Wynn - Last Filed: 09/15/16 14:11> Subjective - Date & Time of Evaluation Date of Evaluation: 09/15/16 Time of Evaluation: 07:55 - Subjective Subjective: Yeimi Wynn DO, PGY-1, Internal Medicine, Hospitalist Service Patient seen and examined at bedside. Per nursing, no acute events overnight. Patient reports abdominal pain slightly improving, 6/10. No other complaints at this time. Pt is NPO for MRCP this morning. Denies fevers, chills, headaches, dizziness, CP, SOB, palpitations, urinary symptoms, changes in bowel habit. Objective - Vital Signs/Intake and Output Vital Signs (last 24 hours): Temp Pulse Resp BP Pulse Ox 97.9 F 70 20 115/67 98 09/15/16 08:00 09/15/16 08:00 09/15/16 08:00 09/15/16 08:00 09/15/16 08:00 Intake and Output: 09/15/16 09/15/16 06:59 18:59 Intake Total 420 Output Total 1 Balance 419 - Medications Medications: Current Medications Acetaminophen (Tylenol 325mg Tab) 650 mg PO Q6H PRN PRN Reason: Headache Lactated Ringer's (Lactated Ringer's) 1,000 mls @ 100 mls/hr IV .Q10H [facility] Last Admin: 09/15/16 11:47 Dose: 100 mls/hr Insulin Human Lispro (Humalog Low) 0 units SC ACHS [facility] PRN Reason: Protocol Last Admin: 09/15/16 11:46 Dose: Not Given Morphine Sulfate (Morphine) 2 mg IVP Q6H PRN PRN Reason: Pain, moderate (4-7) Ondansetron HCl (Zofran Inj) 4 mg IVP Q6H PRN PRN Reason: Nausea/Vomiting Pantoprazole Sodium (Protonix Inj) 40 mg IVP DAILY [facility] Last Admin: 09/15/16 11:09 Dose: 40 mg - Labs Labs: 09/15/16 07:00 09/15/16 07:00 - Constitutional Appears: Well, No Acute Distress - Head Exam Head Exam: ATRAUMATIC, NORMAL INSPECTION - Eye Exam Eye Exam: EOMI, Normal appearance - ENT Exam ENT Exam: Mucous Membranes Moist - Neck Exam Neck Exam: Full ROM, Normal Inspection - Respiratory Exam Respiratory Exam: Clear to Ausculation Bilateral, NORMAL BREATHING PATTERN. absent: Rales, Rhonchi, Wheezes - Cardiovascular Exam Cardiovascular Exam: REGULAR RHYTHM, +S1, +S2 - GI/Abdominal Exam GI & Abdominal Exam: Soft, Tenderness, Normal Bowel Sounds. absent: Guarding, Rigid - Extremities Exam Extremities Exam: Full ROM, Normal Inspection - Back Exam Back Exam: NORMAL INSPECTION - Neurological Exam Neurological Exam: Alert, Awake, Oriented x3 - Psychiatric Exam Psychiatric exam: Normal Affect, Normal Mood - Skin Skin Exam: Normal Color, Warm Assessment and Plan - Assessment and Plan (Free Text) Assessment: 61 y/o F with PMH of chronic pancreatitis, IDDM presents with acute pancreatitis. Pt will remain on LR for IVF. Pt seen by GI who recommend US abdomen and MRCP. Plan: 1. Acute on chronic pancreatitis -NPO for MRCP this morning -F/U official gallbladder US read -Advance diet to low fat as tolerated -Continue LR @ 100 cc/hr -F/U labs, IGG4 -Pain control - morphine prn -GI consult: Dr. Hudson, f/u recommendations -GI Recommending EUS outpatient 2. IDDM -ISS -Accuchecks ACHS 3. Adrenal lesion -CT Abd/pelvis with IV contrast: right adrenal lesion- recommend nonemergent MRI -f/u outpatient for further evaluation 4. Fibroid uterus -CT Abd/pelvis with IV contrast: probable fibroid uterus [several small calcifications within uterus] -f/u [employer] outpatient for further evaluation 5. PPX -Protonix -SCDs Yeimi Wynn PGY-1 <Mei Davis - Last Filed: 09/15/16 20:50> Objective - Vital Signs/Intake and Output Vital Signs (last 24 hours): Temp Pulse Resp BP Pulse Ox 97.8 F 71 18 112/65 96 09/15/16 16:34 09/15/16 16:34 09/15/16 16:34 09/15/16 16:34 09/15/16 16:34 Intake and Output: 09/15/16 09/16/16 18:59 06:59 Intake Total 2069 Balance 2069 - Medications Medications: Current Medications Acetaminophen (Tylenol 325mg Tab) 650 mg PO Q6H PRN PRN Reason: Headache Lactated Ringer's (Lactated Ringer's) 1,000 mls @ 100 mls/hr IV .Q10H [facility] Last Admin: 09/15/16 11:47 Dose: 100 mls/hr Insulin Human Lispro (Humalog Low) 0 units SC ACHS [facility] PRN Reason: Protocol Last Admin: 09/15/16 16:59 Dose: 3 units Morphine Sulfate (Morphine) 2 mg IVP Q6H PRN PRN Reason: Pain, moderate (4-7) Ondansetron HCl (Zofran Inj) 4 mg IVP Q6H PRN PRN Reason: Nausea/Vomiting Pantoprazole Sodium (Protonix Inj) 40 mg IVP DAILY [facility] Last Admin: 09/15/16 11:09 Dose: 40 mg - Labs Labs: 09/15/16 07:00 09/15/16 07:00 Attending/Attestation - Attestation I have personally seen and examined this patient.: Yes I have fully participated in the care of the patient.: Yes I have reviewed all pertinent clinical information, including history, physical exam and plan: Yes Notes (Text): 09/15/16 20:48 Patient seen and examined at bedside. Vitals, notes, and orders reviewed. No overnight issues and she feels better symptomatically. Denies any new complaints. MRCP unremarkable , diet advanced to soft diet today. GI follow up appreciated. Agree with the plan as outlined by the resident including outpatient [facility] follow up.
[2016-09-15 16:35] VITALS: RESP 18
[2016-09-15 19:41] LABS: URINE BILIRUBIN NEGATIVE (NEGATIVE); URINE BLOOD NEGATIVE (NEGATIVE); URINE GLUCOSE (UA) >=1000 mg/dL (NEGATIVE); URINE LEUKOCYTE ESTERASE TRACE Leu/uL (NEGATIVE); URINE NITRATE NEGATIVE (NEGATIVE); URINE PROTEIN NEGATIVE mg/dL (<30 mg/dL); URINE UROBILINOGEN 0.2 E.U./dL (<1 E.U./dL)
[2016-09-15 20:04] LABS: URINE APPEARANCE CLEAR (CLEAR); URINE COLOR YELLOW (YELLOW)
[2016-09-15 20:18] LABS: URINE RBC NEGATIVE /hpf (0-2)
[2016-09-15 20:19] LABS: URINE BACTERIA FEW (NEG)
[2016-09-16 08:44] LABS: HEMOGLOBIN 11.5 gm/dL (12.0-16.0); MEAN CELL VOLUME 80.8 fL (80.0-105.0); MEAN CORPUSCULAR HEMOGLOBIN 27.3 pg (25.0-35.0); MEAN CORPUSCULAR HGB CONC 33.7 g/dl (31.0-37.0); MEAN PLATELET VOLUME 8.4 fl (7.0-11.0); RBC 4.22 10^6/uL (3.5-6.1); WHITE BLOOD COUNT 6.8 10^3/ul (4.5-11.0)
[2016-09-16 08:48] LABS: ALB/GLOB RATIO 1.2 (1.1-1.8); ALBUMIN 3.9 g/dL (3.0-4.8); ALT/SGPT 19 U/L (7-56); AST/SGOT 14 U/L (15-39); BLOOD UREA NITROGEN 12 mg/dL (7-21); GFR AFRICAN-AMERICAN > 60; GFR NON-AFRICAN AMERICAN > 60; MAGNESIUM 1.7 mg/dL (1.7-2.2)
[2016-09-16 09:08] LABS: LIPASE 8113 U/L (23-300)
--- NOTE | 2016-09-16 09:42 | CP.PCM.PN ---
Subjective - Date & Time of Evaluation Date of Evaluation: 09/16/16 Time of Evaluation: 09:38 - Subjective Subjective: Patient seen and examined. Resting in bed comfortably, no acute events overnight. Her abdominal pain has significantly improved compared to previous day. She denies nausea, vomiting, fever/chills. Tolerating PO diet without difficulty, asking to go home. Review of vitals from today are normal. 12 point review of systems performed, negative aside from mentioned above. Objective - Vital Signs/Intake and Output Vital Signs (last 24 hours): Temp Pulse Resp BP Pulse Ox 97.5 F L 65 18 120/71 99 09/16/16 08:16 09/16/16 08:16 09/16/16 08:16 09/16/16 08:16 09/16/16 08:16 Intake and Output: 09/16/16 09/16/16 06:59 18:59 Intake Total 420 Balance 420 - Medications Medications: Current Medications Acetaminophen (Tylenol 325mg Tab) 650 mg PO Q6H PRN PRN Reason: Headache Lactated Ringer's (Lactated Ringer's) 1,000 mls @ 100 mls/hr IV .Q10H [facility] Last Admin: 09/15/16 21:47 Dose: 100 mls/hr Insulin Human Lispro (Humalog Low) 0 units SC ACHS [facility] PRN Reason: Protocol Last Admin: 09/15/16 21:48 Dose: Not Given Morphine Sulfate (Morphine) 2 mg IVP Q6H PRN PRN Reason: Pain, moderate (4-7) Ondansetron HCl (Zofran Inj) 4 mg IVP Q6H PRN PRN Reason: Nausea/Vomiting Pantoprazole Sodium (Protonix Inj) 40 mg IVP DAILY [facility] Last Admin: 09/15/16 11:09 Dose: 40 mg - Labs Labs: 09/16/16 08:34 09/16/16 08:34 - Constitutional Appears: Non-toxic, No Acute Distress - Head Exam Head Exam: NORMAL INSPECTION - Eye Exam Eye Exam: EOMI, Normal appearance - ENT Exam ENT Exam: Mucous Membranes Moist - Respiratory Exam Respiratory Exam: Clear to Ausculation Bilateral - Cardiovascular Exam Cardiovascular Exam: REGULAR RHYTHM, +S1, +S2 - GI/Abdominal Exam GI & Abdominal Exam: Soft, Normal Bowel Sounds Additional comments: non tender to palpation in four quadrants - Extremities Exam Extremities Exam: Normal Inspection - Skin Skin Exam: Dry, Intact, Normal Color, Warm Assessment and Plan - Assessment and Plan (Free Text) Assessment: DM Abdominal pain, acute pancreatitis - etiology unclear MRCP reviewed by me showing no focal pancreatic lesions or abnormalities Plan: - Low fat diet as tolerated - Continue with supportive care, pain control - Awaiting IGG4 level - From GI standpoint ok to discharge home with subsequent outpatient follow up. Suggest outpatient EUS given questionable anatomical pancreatic abnormality and unclear etiology of acute pancreatitis, to be scheduled with Dr. Sung, office contact information provided to patient. Will sign off case, please reconsult as necessary, thank you.
[2016-09-16] MEDS: Lactated Ringer's 1,000 ML IV SCH (09:57)
[2016-09-16] MEDS: Insulin Lispro (humaLOG) LOW Coverage SC SCH (12:14)
--- NOTE | 2016-09-16 13:11 | CP.PCM.PN ---
<Fadi Serra - Last Filed: 09/16/16 13:06> Subjective - Date & Time of Evaluation Date of Evaluation: 09/16/16 Time of Evaluation: 09:40 - Subjective Subjective: Fadi Serra DO, PGY-1, Hospitalist Service Dr. Lou Patient seen and examined at bedside. Patient was able to pass BM, stool sample derived from that. Patient denies any abdominal pain, N/V/D, or SOB. Nurse reports no events overnight. Objective - Vital Signs/Intake and Output Vital Signs (last 24 hours): Temp Pulse Resp BP Pulse Ox 97.5 F L 65 18 120/71 99 09/16/16 08:16 09/16/16 08:16 09/16/16 08:16 09/16/16 08:16 09/16/16 08:16 Intake and Output: 09/16/16 09/16/16 06:59 18:59 Intake Total 420 Balance 420 - Medications Medications: Current Medications Acetaminophen (Tylenol 325mg Tab) 650 mg PO Q6H PRN PRN Reason: Headache Lactated Ringer's (Lactated Ringer's) 1,000 mls @ 100 mls/hr IV .Q10H [facility] Last Admin: 09/16/16 09:57 Dose: 100 mls/hr Insulin Human Lispro (Humalog Low) 0 units SC ACHS [facility] PRN Reason: Protocol Last Admin: 09/16/16 12:14 Dose: 1 units Morphine Sulfate (Morphine) 2 mg IVP Q6H PRN PRN Reason: Pain, moderate (4-7) Ondansetron HCl (Zofran Inj) 4 mg IVP Q6H PRN PRN Reason: Nausea/Vomiting Last Admin: 09/16/16 09:51 Dose: 4 mg Pantoprazole Sodium (Protonix Inj) 40 mg IVP DAILY [facility] Last Admin: 09/16/16 10:04 Dose: 40 mg - Labs Labs: 09/16/16 08:34 09/16/16 08:34 - Constitutional Appears: Well, Non-toxic, No Acute Distress - Head Exam Head Exam: ATRAUMATIC, NORMOCEPHALIC - Eye Exam Eye Exam: EOMI, Normal appearance - ENT Exam ENT Exam: Mucous Membranes Moist, Normal Oropharynx - Neck Exam Neck Exam: Normal Inspection. absent: Thyromegaly - Respiratory Exam Respiratory Exam: Clear to Ausculation Bilateral, NORMAL BREATHING PATTERN. absent: Rales, Wheezes - Cardiovascular Exam Cardiovascular Exam: RRR, +S1, +S2 - GI/Abdominal Exam GI & Abdominal Exam: Soft, Normal Bowel Sounds. absent: Guarding, Rebound - Rectal Exam Rectal Exam: Deferred - Extremities Exam Extremities Exam: Normal Capillary Refill, Normal Inspection - Neurological Exam Neurological Exam: Alert, Awake, Oriented x3 - Psychiatric Exam Psychiatric exam: Normal Affect, Normal Mood - Skin Skin Exam: Dry, Intact, Normal Color, Warm Assessment and Plan - Assessment and Plan (Free Text) Assessment: 61 y/o F with PMH of chronic pancreatitis, IDDM presents with acute pancreatitis. Pt will remain on LR for IVF. Pt seen by GI who recommend US abdomen and MRCP. Plan: 1. Acute on chronic pancreatitis - MRCP shows possible pancreatic divisum, -Advance diet to low fat as tolerated -Continue LR @ 100 cc/hr - IGG4 pending, AIP -Pain control - morphine prn -GI consult: Dr. Hudson, recommendations include outpatient EUS - 2. IDDM -ISS -Accuchecks ACHS 3. Adrenal lesion -CT Abd/pelvis with IV contrast: right adrenal lesion- recommend nonemergent MRI -f/u outpatient for further evaluation 4. 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 PPX -Protonix -SCDs <Winston Lou - Last Filed: 09/16/16 16:00> Objective - Vital Signs/Intake and Output Vital Signs (last 24 hours): Temp Pulse Resp BP Pulse Ox 97.5 F L 65 18 120/71 99 09/16/16 08:16 09/16/16 08:16 09/16/16 08:16 09/16/16 08:16 09/16/16 08:16 Intake and Output: 09/16/16 09/16/16 06:59 18:59 Intake Total 420 Balance 420 - Medications Medications: Current Medications Acetaminophen (Tylenol 325mg Tab) 650 mg PO Q6H PRN PRN Reason: Headache Lactated Ringer's (Lactated Ringer's) 1,000 mls @ 100 mls/hr IV .Q10H [facility] Last Admin: 09/16/16 09:57 Dose: 100 mls/hr Insulin Human Lispro (Humalog Low) 0 units SC ACHS [facility] PRN Reason: Protocol Last Admin: 09/16/16 12:14 Dose: 1 units Morphine Sulfate (Morphine) 2 mg IVP Q6H PRN PRN Reason: Pain, moderate (4-7) Ondansetron HCl (Zofran Inj) 4 mg IVP Q6H PRN PRN Reason: Nausea/Vomiting Last Admin: 09/16/16 09:51 Dose: 4 mg Pantoprazole Sodium (Protonix Inj) 40 mg IVP DAILY [facility] Last Admin: 09/16/16 10:04 Dose: 40 mg - Labs Labs: 09/16/16 08:34 09/16/16 08:34 Attending/Attestation - Attestation I have personally seen and examined this patient.: Yes I have fully participated in the care of the patient.: Yes I have reviewed all pertinent clinical information, including history, physical exam and plan: Yes Notes (Text): 09/16/16 15:55 61 year old female with past medical history of chronic pancreatitis and diabetes who presented with abdominal pain. She was admitted for acute on chronic pancreatitis. Her symptoms improved and her diet was advanced. On CT she was found to have probable fibroid uterus for which she was recommended to follow up with wet process operator and adrenal lesion for which she was recommended to follow up with her pmd further testing possible MRI. She was seen by GI who ordered IGG and recommended outpatient EUS. Patient's symptoms have improved. She is discharged home today to follow up with her pmd. Follow up with GI for EUS and to follow up on IGG. Follow up with wet process operator and pmd for testing as above. Winston Lou MD Hospitalist.
--- NOTE | 2016-09-16 13:41 | CP.PCM.DIS ---
<Fadi Serra - Last Filed: 09/16/16 13:55> Provider - Provider Date of Admission: 09/13/16 22:35 Attending physician: Winston Lou MD Primary care physician: Garett Purcell DO Consults: Dr. Pineda ROBERTS Time Spent in preparation of Discharge (in minutes): 36 Hospital Course - Lab Results Lab Results: Most Recent Lab Values WBC 6.8 10^3/ul (4.5-11.0) 09/16/16 08:34 RBC 4.22 10^6/uL (3.5-6.1) 09/16/16 08:34 Hgb 11.5 gm/dL (12.0-16.0) L 09/16/16 08:34 Hct 34.1 % (36.0-48.0) L 09/16/16 08:34 MCV 80.8 fL (80.0-105.0) 09/16/16 08:34 MCH 27.3 pg (25.0-35.0) 09/16/16 08:34 MCHC 33.7 g/dl (31.0-37.0) 09/16/16 08:34 RDW 14.0 % (11.5-14.5) 09/16/16 08:34 Plt Count 225 10^3/uL (120.0-450.0) 09/16/16 08:34 MPV 8.4 fl (7.0-11.0) 09/16/16 08:34 Gran % 57.4 % (50.0-68.0) 09/14/16 07:42 Lymph % (Auto) 29.7 % (22.0-35.0) 09/14/16 07:42 [place] % (Auto) 6.4 % (1.0-6.0) H 09/14/16 07:42 Eos % (Auto) 6.4 % (1.5-5.0) H 09/14/16 07:42 Baso % (Auto) 0.1 % (0.0-3.0) 09/14/16 07:42 Gran # 4.38 (1.4-6.5) 09/14/16 07:42 Lymph # 2.3 (1.2-3.4) 09/14/16 07:42 [place] # 0.5 (0.1-0.6) 09/14/16 07:42 Eos # 0.5 (0.0-0.7) 09/14/16 07:42 Baso # 0.01 K/mm3 (0.0-2.0) 09/14/16 07:42 Sodium 140 mmol/L (132-148) 09/16/16 08:34 Potassium 4.0 mmol/L (3.6-5.0) 09/16/16 08:34 Chloride 104 mmol/L (98-107) 09/16/16 08:34 Carbon Dioxide 24 mmol/L (21-33) 09/16/16 08:34 Anion Gap 16 (10-20) 09/16/16 08:34 BUN 12 mg/dL (7-21) 09/16/16 08:34 Creatinine 0.5 mg/dL (0.5-1.4) 09/16/16 08:34 Est GFR ( Amer) > 60 09/16/16 08:34 Est GFR (Non-Af Amer) > 60 09/16/16 08:34 POC Glucose (mg/dL) 296 mg/dL (65-110) H 09/16/16 11:36 Random Glucose 153 mg/dL (70-110) H 09/16/16 08:34 Hemoglobin A1c 9.2 % (4.2-6.5) H 09/14/16 07:10 Calcium 9.0 mg/dL (8.4-10.5) 09/16/16 08:34 Phosphorus 3.8 mg/dL (2.5-4.5) 09/16/16 08:34 Magnesium 1.7 mg/dL (1.7-2.2) 09/16/16 08:34 Total Bilirubin 0.4 mg/dL (0.2-1.3) 09/16/16 08:34 AST 14 U/L (15-39) L 09/16/16 08:34 ALT 19 U/L (7-56) 09/16/16 08:34 Alkaline Phosphatase 81 U/L (38-133) 09/16/16 08:34 Lactate Dehydrogenase 699 U/L (333-699) 09/14/16 00:10 Troponin I < 0.01 ng/mL 09/13/16 21:10 Total Protein 7.2 g/dL (5.8-8.3) 09/16/16 08:34 Albumin 3.9 g/dL (3.0-4.8) 09/16/16 08:34 Globulin 3.3 gm/dL 09/16/16 08:34 Albumin/Globulin Ratio 1.2 (1.1-1.8) 09/16/16 08:34 Triglycerides 146 mg/dL (35-160) 09/15/16 07:00 Lipase 8113 U/L (23-300) H 09/16/16 08:34 Urine Color Yellow (YELLOW) 09/15/16 19:00 Urine Appearance Clear (CLEAR) 09/15/16 19:00 Urine pH 6.0 (4.7-8.0) 09/15/16 19:00 Ur Specific [place] <= 1.005 (1.005-1.035) 09/15/16 19:00 Urine Protein Negative mg/dL (<30 mg/dL) 09/15/16 19:00 Urine Glucose (UA) >=1000 mg/dL (NEGATIVE) 09/15/16 19:00 Urine Ketones Trace mg/dL (NEGATIVE) H 09/15/16 19:00 Urine Blood Negative (NEGATIVE) 09/15/16 19:00 Urine Nitrate Negative (NEGATIVE) 09/15/16 19:00 Urine Bilirubin Negative (NEGATIVE) 09/15/16 19:00 Urine Urobilinogen 0.2 E.U./dL (<1 E.U./dL) 09/15/16 19:00 Ur Leukocyte Esterase Trace Donna/uL (NEGATIVE) H 09/15/16 19:00 Urine RBC Negative /hpf (0-2) 09/15/16 19:00 Urine WBC 5 - 10 /hpf (0-6) 09/15/16 19:00 Ur Epithelial Cells 1 - 3 /hpf (0-5) 09/15/16 19:00 Urine Bacteria Few (NEG) 09/15/16 19:00 - Hospital Course Hospital Course: 61 yo female PMHx of IDDM presents with abdominal pain worsening over 3 days. Initial labs and diagnostics test including but not limited to CT Abd/pelvis with IV contrast showed acute on chronic pancreatitis with serum lipase of 13, 016. Patient was started on IVF, kept NPO, and subsequent imaging including but not limited to RUQ sonagram which showed findings consistent with chronic pancreatitis without evidence of stone in the common bile duct or dilitation of the CBD. GI was consulted and an MRCP was ordered that showed possible pancreatic divisum. The patient was also tested for AIP, which is pending. At any rate, the patient's symptoms resolved, she was able to tolerate a diet, and it was recommended she follow up with [facility], Dr. Sung for furhter evaluation. - Date & Time of H&P Date of H&P: 09/16/16 Time of H&P: 14:03 Discharge Exam - Head Exam Head Exam: ATRAUMATIC, NORMOCEPHALIC - Eye Exam Eye Exam: EOMI, Normal appearance, PERRL - ENT Exam ENT Exam: Mucous Membranes Moist, Normal Oropharynx - Neck Exam Neck exam: Normal Inspection - Respiratory Exam Respiratory Exam: Clear to PA & Lateral, NORMAL BREATHING PATTERN. absent: Rales, Wheezes - Cardiovascular Exam Cardiovascular Exam: RRR, +S1, +S2 - GI/Abdominal Exam GI & Abdominal Exam: Normal Bowel Sounds. absent: Distended, Guarding, Tenderness - Rectal Exam Rectal Exam: Deferred - Extremities Exam Extremities exam: normal capillary refill, normal inspection, pedal pulses present - Back Exam Back exam: NORMAL INSPECTION. absent: paraspinal tenderness, rash noted - Neurological Exam Neurological exam: Alert, CN II-XII Intact, Oriented x3 - Psychiatric Exam Psychiatric exam: Normal Affect, Normal Mood - Skin Skin Exam: Dry, Intact, Normal Color, Warm Discharge Plan - Follow Up Plan Condition: STABLE Disposition: HOME/ ROUTINE Instructions: Pancreatitis (DC) Additional Instructions: 1) Follow up with Dr. Pineda ROBERTS. 2) Follow up within 2 weeks with PMD. Referrals: Garett Purcell DO [Primary Care Provider] - <Winston Lou - Last Filed: 09/16/16 16:01> Provider - Provider Date of Admission: 09/13/16 22:35 Attending physician: Winston Lou MD Primary care physician: Garett Purcell DO Hospital Course - Lab Results Lab Results: Most Recent Lab Values WBC 6.8 10^3/ul (4.5-11.0) 09/16/16 08:34 RBC 4.22 10^6/uL (3.5-6.1) 09/16/16 08:34 Hgb 11.5 gm/dL (12.0-16.0) L 09/16/16 08:34 Hct 34.1 % (36.0-48.0) L 09/16/16 08:34 MCV 80.8 fL (80.0-105.0) 09/16/16 08:34 MCH 27.3 pg (25.0-35.0) 09/16/16 08:34 MCHC 33.7 g/dl (31.0-37.0) 09/16/16 08:34 RDW 14.0 % (11.5-14.5) 09/16/16 08:34 Plt Count 225 10^3/uL (120.0-450.0) 09/16/16 08:34 MPV 8.4 fl (7.0-11.0) 09/16/16 08:34 Gran % 57.4 % (50.0-68.0) 09/14/16 07:42 Lymph % (Auto) 29.7 % (22.0-35.0) 09/14/16 07:42 [place] % (Auto) 6.4 % (1.0-6.0) H 09/14/16 07:42 Eos % (Auto) 6.4 % (1.5-5.0) H 09/14/16 07:42 Baso % (Auto) 0.1 % (0.0-3.0) 09/14/16 07:42 Gran # 4.38 (1.4-6.5) 09/14/16 07:42 Lymph # 2.3 (1.2-3.4) 09/14/16 07:42 [place] # 0.5 (0.1-0.6) 09/14/16 07:42 Eos # 0.5 (0.0-0.7) 09/14/16 07:42 Baso # 0.01 K/mm3 (0.0-2.0) 09/14/16 07:42 Sodium 140 mmol/L (132-148) 09/16/16 08:34 Potassium 4.0 mmol/L (3.6-5.0) 09/16/16 08:34 Chloride 104 mmol/L (98-107) 09/16/16 08:34 Carbon Dioxide 24 mmol/L (21-33) 09/16/16 08:34 Anion Gap 16 (10-20) 09/16/16 08:34 BUN 12 mg/dL (7-21) 09/16/16 08:34 Creatinine 0.5 mg/dL (0.5-1.4) 09/16/16 08:34 Est GFR ( Amer) > 60 09/16/16 08:34 Est GFR (Non-Af Amer) > 60 09/16/16 08:34 POC Glucose (mg/dL) 296 mg/dL (65-110) H 09/16/16 11:36 Random Glucose 153 mg/dL (70-110) H 09/16/16 08:34 Hemoglobin A1c 9.2 % (4.2-6.5) H 09/14/16 07:10 Calcium 9.0 mg/dL (8.4-10.5) 09/16/16 08:34 Phosphorus 3.8 mg/dL (2.5-4.5) 09/16/16 08:34 Magnesium 1.7 mg/dL (1.7-2.2) 09/16/16 08:34 Total Bilirubin 0.4 mg/dL (0.2-1.3) 09/16/16 08:34 AST 14 U/L (15-39) L 09/16/16 08:34 ALT 19 U/L (7-56) 09/16/16 08:34 Alkaline Phosphatase 81 U/L (38-133) 09/16/16 08:34 Lactate Dehydrogenase 699 U/L (333-699) 09/14/16 00:10 Troponin I < 0.01 ng/mL 09/13/16 21:10 Total Protein 7.2 g/dL (5.8-8.3) 09/16/16 08:34 Albumin 3.9 g/dL (3.0-4.8) 09/16/16 08:34 Globulin 3.3 gm/dL 09/16/16 08:34 Albumin/Globulin Ratio 1.2 (1.1-1.8) 09/16/16 08:34 Triglycerides 146 mg/dL (35-160) 09/15/16 07:00 Lipase 8113 U/L (23-300) H 09/16/16 08:34 Urine Color Yellow (YELLOW) 09/15/16 19:00 Urine Appearance Clear (CLEAR) 09/15/16 19:00 Urine pH 6.0 (4.7-8.0) 09/15/16 19:00 Ur Specific [place] <= 1.005 (1.005-1.035) 09/15/16 19:00 Urine Protein Negative mg/dL (<30 mg/dL) 09/15/16 19:00 Urine Glucose (UA) >=1000 mg/dL (NEGATIVE) 09/15/16 19:00 Urine Ketones Trace mg/dL (NEGATIVE) H 09/15/16 19:00 Urine Blood Negative (NEGATIVE) 09/15/16 19:00 Urine Nitrate Negative (NEGATIVE) 09/15/16 19:00 Urine Bilirubin Negative (NEGATIVE) 09/15/16 19:00 Urine Urobilinogen 0.2 E.U./dL (<1 E.U./dL) 09/15/16 19:00 Ur Leukocyte Esterase Trace Donna/uL (NEGATIVE) H 09/15/16 19:00 Urine RBC Negative /hpf (0-2) 09/15/16 19:00 Urine WBC 5 - 10 /hpf (0-6) 09/15/16 19:00 Ur Epithelial Cells 1 - 3 /hpf (0-5) 09/15/16 19:00 Urine Bacteria Few (NEG) 09/15/16 19:00 Attending/Attestation - Attestation I have personally seen and examined this patient.: Yes I have fully participated in the care of the patient.: Yes I have reviewed all pertinent clinical information, including history, physical exam and plan: Yes Notes (Text): 09/16/16 16:01 61 year old female with past medical history of chronic pancreatitis and diabetes who presented with abdominal pain. She was admitted for acute on chronic pancreatitis. Her symptoms improved and her diet was advanced. On CT she was found to have probable fibroid uterus for which she was recommended to follow up with track equipment operator and adrenal lesion for which she was recommended to follow up with her pmd further testing possible MRI. She was seen by GI who ordered IGG and recommended outpatient EUS. Patient's symptoms have improved. She is discharged home today to follow up with her pmd. Follow up with GI for EUS and to follow up on IGG. Follow up with track equipment operator and pmd for testing as above. Winston Lou MD Hospitalist.
[2016-09-16 17:23] VITALS: BP 123/68; PULSE 64; TEMP 98.2; O2SAT 100
[2016-09-16] MEDS ORDERED: Pneumococcal 23-Valent Vaccine IM ONE (17:24)
== END 2016-09-16 20:00 | disposition home or self-care (01) | DRG 439 ==
LOC: ED 20:47 → ERH 22:35 → 5RSO 09-14 00:10
PROVIDERS: ADMIT Internal Medicine; ATTEND Internal Medicine
PROC: 3E0234Z Introduction of Serum, Toxoid and Vaccine into Muscle, Percutaneous Approach (ICD-10-PCS; principal; 2016-09-16)
DX: K85.90 Acute pancreatitis without necrosis or infection, unspecified (principal); K62.5 Hemorrhage of anus and rectum; D25.9 Leiomyoma of uterus, unspecified; K86.1 Other chronic pancreatitis; E10.9 Type 1 diabetes mellitus without complications; E27.9 Disorder of adrenal gland, unspecified; Z79.4 Long term (current) use of insulin; Z79.899 Other long term (current) drug therapy; R40.2412 Glasgow coma scale score 13-15, at arrival to emergency department; Z23 Encounter for immunization

== ENCOUNTER 2017-01-07 14:18 | Observation (INO) | payer MEDICARE, OTHER ==
[2017-01-07 14:24] VITALS: BMI 23.3
--- NOTE | 2017-01-07 15:23 | ED PDOC ---
Arrival/HPI - General Chief Complaint: Shortness Of Breath Time Seen by Provider: 01/07/17 14:22 Historian: Patient, Family - History of Present Illness Narrative History of Present Illness (Text): 01/07/17 14:45 A 61 year old female, whose past medical history includes diabetes type 2 insulin-requiring diabetes, presents to the emergency department for midsternal chest pain and palpitations. The patient states for the last 2 days she has been having palpitations that occur ever 30 minutes. She notes for the last 3 days she has been weaker than baseline and has had shortness of breath on exertion. She also says that she has been feeling that she is about to pass out when she gets the symptoms. The patient denies any fever, cough, abdominal pain , nausea, vomiting, leg swelling, or any other complaints at this time. PMD: Dr. Purcell Time/Duration: < week (2-3 days ) Symptom Onset: Gradual Symptom Course: Unchanged Activities at Onset: Light Context: Home Past Medical History - Provider Review Nursing Documentation Reviewed: Yes - Infectious Disease Hx of Infectious Diseases: None - Tetanus Immunization Tetanus Immunization: Unknown - Cardiac Hx Cardiac Disorders: No - Pulmonary Hx Respiratory Disorders: No - Neurological Hx Neurological Disorder: No - HEENT Hx HEENT Disorder: No - Renal Hx Renal Disorder: No - Endocrine/Metabolic Hx Endocrine Disorders: Yes Hx Diabetes Mellitus Type 1: Yes Hx Diabetes Mellitus Type 2: Yes Other/Comment: Questionable pancreatic CA - Hematological/Oncological Hx Blood Disorders: No - Integumentary Hx Dermatological Disorder: No - Musculoskeletal/Rheumatological Hx Musculoskeletal Disorders: Yes Hx Arthritis: Yes - Gastrointestinal Hx Gastrointestinal Disorders: Yes Other/Comment: RECTAL BLEEDING - Genitourinary/Gynecological Hx Genitourinary Disorders: No - Psychiatric Hx Psychophysiologic Disorder: No Hx Substance Use: No - Past Surgical History Past Surgical History: No Previous - Surgical History Other/Comment: R chest port removed. R breast biopsy - Anesthesia Hx Anesthesia: Yes Hx Anesthesia Reactions: No Hx Malignant Hyperthermia: No - Suicidal Assessment Feels Threatened In Home Enviroment: No Family/Social History - Physician Review Nursing Documentation Reviewed: Yes Family/Social History: No Known Family HX Smoking Status: Never Smoked Hx Alcohol Use: No Hx Substance Use: No Allergies/Home Meds Allergies/Adverse Reactions: Allergies No Known Allergies Allergy (Verified 09/13/16 20:49) Home Medications: Home Meds Medication Instructions Recorded Confirmed Empagliflozin [Jardiance] 10 mg PO DAILY 01/24/15 01/07/17 Insulin Aspart, Recombinant 0 units SUBCUT ACHS 09/13/16 01/07/17 [Novolog] Gabapentin [Neurontin] 1 tab PO DAILY 01/07/17 01/07/17 Review of Systems - Physician Review All systems were reviewed & negative as marked: Yes - Review of Systems Constitutional: absent: Fevers Respiratory: SOB (on exertion ). absent: Cough Cardiovascular: Chest Pain, Palpitations, Other (near syncope) Gastrointestinal: absent: Abdominal Pain, Nausea, Vomiting Neurological: Dizziness Physical Exam Vital Signs Reviewed: Yes Vital Signs Temp Pulse Resp BP Pulse Ox 01/07/17 15:39 78 18 122/73 99 01/07/17 14:27 98.2 F 80 18 124/77 100 Temperature: Afebrile Blood Pressure: Normal Pulse: Regular Respiratory Rate: Normal Appearance: Positive for: Well-Appearing, Non-Toxic, Comfortable Pain Distress: None Mental Status: Positive for: Alert and Oriented X 3 - Systems Exam Head: Present: Atraumatic, Normocephalic Pupils: Present: PERRL Conjunctiva: Present: Normal Mouth: Present: Moist Mucous Membranes Pharnyx: Present: Normal. No: ERYTHEMA, EXUDATE Neck: Present: Normal Range of Motion Respiratory/Chest: Present: Clear to Auscultation, Good Air Exchange. No: Respiratory Distress, Accessory Muscle Use Cardiovascular: Present: Regular Rate and Rhythm, Normal S1, S2. No: Murmurs Abdomen: Present: Normal Bowel Sounds. No: Tenderness, Distention, Peritoneal Signs Back: Present: Normal Inspection Upper Extremity: Present: Normal Inspection. No: Cyanosis, Edema Lower Extremity: Present: Normal Inspection. No: Edema Neurological: Present: GCS=15, CN II-XII Intact, Speech Normal Skin: Present: Warm, Dry, Normal Color. No: Rashes Psychiatric: Present: Alert, Oriented x 3, Normal Insight, Normal Concentration Medical Decision Making ED Course and Treatment: 01/07/17 15:00 Impression: A 61 year old female with chest pain and palpitations Differential Diagnosis included but are not limited to: ACS vs arrhythmia vs PE vs anxiety Plan: -- EKG -- Chest X-ray -- Labs -- Urinalysis -- Reassess and disposition Progress Notes: 01/07/17 17:05 Patient with noted history with history of diabetes with symptoms concerning for possible cardiac etiology. EKG with poor R wave progression but otherwise nondiagnostic. She has DM and is post-menopausal and therefore with multiple risks for ACS - will place on observation on tele for further assessment and treatment. Discussed with on-call physician, Dr. Kim. for placement on his service. - Lab Interpretations Lab Results: 01/07/17 15:14 01/07/17 15:14 Lab Results 01/07/17 16:00: Urine Opiates Screen Negative, Urine Methadone Screen Negative, Ur Barbiturates Screen Negative, Ur Phencyclidine Scrn Negative, Ur Amphetamines Screen Negative, U Benzodiazepines Scrn Negative, U Oth Cocaine Metabols Negative, U Cannabinoids Screen Negative 01/07/17 16:00: Urine Color Yellow, Urine Appearance Clear, Urine pH 6.0, Ur Specific [place] 1.010, Urine Protein Negative, Urine Glucose (UA) >=1000, Urine Ketones Negative, Urine Blood Negative, Urine Nitrate Negative, Urine Bilirubin Negative, Urine Urobilinogen 0.2, Ur Leukocyte Esterase Negative 01/07/17 15:14: Sodium 137, Potassium 3.9, Chloride 102, Carbon Dioxide 25, Anion Gap 15, BUN 16, Creatinine 0.6 L, Est GFR ( Amer) > 60, Est GFR ( Non-Af Amer) > 60, Random Glucose 452 H* D, Calcium 9.5, Magnesium 1.9, Total Bilirubin 0.4, AST 22, ALT 32, Alkaline Phosphatase 111, Lactate Dehydrogenase 319 L, Total Creatine Kinase 21 L, Troponin I < 0.01, NT-Pro-B Natriuret Pep 34.9, Total Protein 7.7, Albumin 4.2, Globulin 3.5, Albumin/Globulin Ratio 1.2, Lipase 220 01/07/17 15:14: PT 12.3, INR 1.13 H, APTT 33.7, D-Dimer, Quantitative < 200 01/07/17 15:14: WBC 8.6 D, RBC 4.27, Hgb 12.3, Hct 36.9, MCV 86.4, MCH 28.8, MCHC 33.3, RDW 14.0, Plt Count 245, MPV 8.8, Gran % 55.2, Lymph % (Auto) 32.7, [place] % (Auto) 5.1, Eos % (Auto) 6.8 H, Baso % (Auto) 0.2, Gran # 4.72, Lymph # 2.8, [place] # 0.4, Eos # 0.6, Baso # 0.02 - RAD Interpretation Radiology Orders: 01/07/17 14:51 CHEST PORTABLE [RAD] Stat - EKG Interpretation EKG Interpretation (Text): 01/07/17 17:11 NSR @ 85; poor R wave progression; normal intervals; normal axis; no ST/T changes. Interpreted by ED Physician: Yes Type: 12 lead EKG - Medication Orders Current Medication Orders: Discontinued Medications Aspirin (Aspirin Chewable) 324 mg PO STAT STA Stop: 01/07/17 16:33 Sodium Chloride (Sodium Chloride 0.9%) 1,000 mls @ 999 mls/hr IV .Q1H1M STA Stop: 01/07/17 16:42 Last Admin: 01/07/17 16:03 Dose: 999 mls/hr eMAR Start Stop Document 01/07/17 16:03 MR (Rec: 01/07/17 16:03 MR [id number]) Intravenous Solution Start Date 01/07/17 Start Time 16:03 End Date 01/07/17 End time 17:03 Total Infusion Time 60 Insulin Human Regular (Humulin R) 6 units IVP ONCE STA Stop: 01/07/17 16:41 - Scribe Statement The provider has reviewed the documentation as recorded by the Gregg Ambrocio Provider Scribe Attestation: All medical record entries made by the Danielaibalejandro were at my direction and personally dictated by me. I have reviewed the chart and agree that the record accurately reflects my personal performance of the history, physical exam, medical decision making, and the department course for this patient. I have also personally directed, reviewed, and agree with the discharge instructions and disposition. Disposition/Present on Arrival - Present on Arrival Any Indicators Present on Arrival: No History of DVT/PE: No History of Uncontrolled Diabetes: No Urinary Catheter: No History of Decub. Ulcer: No History Surgical Site Infection Following: None - Disposition Have Diagnosis and Disposition been Completed?: Yes Diagnosis: Chest pain, Poorly controlled diabetes mellitus Disposition: HOSPITALIZED Disposition Time: 16:10 Patient Plan: Observation, Telemetry Condition: FAIR
--- NOTE | 2017-01-07 15:24 | RAD ---
HISTORY: chest pain COMPARISON: No prior. FINDINGS: LUNGS: No active pulmonary disease. PLEURA: No significant pleural effusion identified, no pneumothorax apparent. CARDIOVASCULAR: Normal. OSSEOUS STRUCTURES: No significant abnormalities. VISUALIZED UPPER ABDOMEN: Normal. OTHER FINDINGS: None. IMPRESSION: No active disease.
[2017-01-07 15:25] LABS: BASO # 0.02 K/mm3 (0.0-2.0); BASO % 0.2 % (0.0-3.0); EOS # 0.6 (0.0-0.7); EOS % 6.8 % (1.5-5.0); GRAN # 4.72 (1.4-6.5); GRAN % 55.2 % (50.0-68.0); HEMATOCRIT 36.9 % (36.0-48.0); LYMPH # 2.8 (1.2-3.4); LYMPH % 32.7 % (22.0-35.0); MEAN CELL VOLUME 86.4 fl (80.0-105.0); MEAN CORPUSCULAR HEMOGLOBIN 28.8 pg (25.0-35.0); MEAN CORPUSCULAR HGB CONC 33.3 g/dl (31.0-37.0); MEAN PLATELET VOLUME 8.8 fl (7.0-11.0); MONO # 0.4 (0.1-0.6); MONO % 5.1 % (1.0-6.0); WHITE BLOOD COUNT 8.6 10^3/ul (4.5-11.0)
[2017-01-07 15:42] LABS: ALB/GLOB RATIO 1.2 (1.1-1.8); ALKALINE PHOSPHATASE 111 U/L (38-126); ALT/SGPT 32 U/L (7-56); AST/SGOT 22 U/L (14-36); BILIRUBIN,TOTAL 0.4 mg/dL (0.2-1.3); BLOOD UREA NITROGEN 16 mg/dL (7-21); CALCIUM 9.5 mg/dL (8.4-10.5); CARBON DIOXIDE 25 mmol/L (21-33); CHLORIDE 102 mmol/L (98-107); GFR AFRICAN-AMERICAN > 60; LIPASE 220 U/L (23-300); MAGNESIUM 1.9 mg/dL (1.7-2.2); POTASSIUM 3.9 mmol/L (3.6-5.0); SODIUM 137 mmol/L (132-148); TOTAL PROTEIN 7.7 g/dL (5.8-8.3)
[2017-01-07] MEDS ORDERED: Sodium Chloride 0.9% 1,000 ML IV STA (15:42)
[2017-01-07 15:48] LABS: TROPONIN I < 0.01 ng/mL
[2017-01-07 16:12] LABS: PARTIAL THROMBOPLASTIN TIME 33.7 Seconds (25.1-36.5)
[2017-01-07 16:23] LABS: D DIMER < 200 ng/mL (0-243); INR 1.13 (0.93-1.08)
[2017-01-07 16:37] LABS: URINE BILIRUBIN NEGATIVE (NEGATIVE); URINE BLOOD NEGATIVE (NEGATIVE); URINE GLUCOSE (UA) >=1000 mg/dL (NEGATIVE); URINE KETONE NEGATIVE (NEGATIVE); URINE LEUKOCYTE ESTERASE NEGATIVE Leu/uL (NEGATIVE); URINE PROTEIN NEGATIVE mg/dL (<30 mg/dL); URINE UROBILINOGEN 0.2 E.U./dL (<1 E.U./dL)
[2017-01-07 16:38] LABS: URINE APPEARANCE CLEAR (CLEAR); URINE COLOR YELLOW (YELLOW)
[2017-01-07 16:38] LABS: GLUCOSE,RANDOM 452 mg/dL (70-110)
[2017-01-07] MEDS ORDERED: Insulin Regular 1 UNITS/0.01 ML ML IVP STA (16:40)
--- NOTE | 2017-01-07 19:23 | CP.PCM.HP ---
History of Present Illness - History of Present Illness History of Present Illness: CC: Palpitations HPI: 61F with PMH of uncontrolled IDDM who presents complaining of palpitations x3 days. Patient says they last 1-2 minutes and then go away but it occurs every 30 minutes or so. Patient admits to associated midsternal, stabbing chest pain that she describes as 8/10 intensity as well as SOB, generalized weakness, and dizziness. Patient says they occur all at the same time. She is also complaining of lower abdominal pain that occurs seperately from the other symptoms. She describes this as feeling like "baby pains" that last 3-4 minutes and then remits, with her last episode being this morning. She also had a headache 2 nights ago that kept her from sleeping well as well as nausea last night but both have resolved. Patient says she is constipated and last BM was 3 days ago. She admits to numbness and occasional burning in her feet from diabetic neuropathy. She otherwise denies blurry vision, cough, vomiting, diarrhea, lower extremity swelling, sick contacts, and recent travel. PMD: Garett Lepe PMHx: IDDM PSurgHx: Port placement and removal for suspected cancer that was ruled out PProcedures: Colonoscopy 2016 per medical record Family Hx: denies Social Hx: denies EtOH abuse, tobacco abuse, drug abuse; lives with daughter; retired Meds: Jardiance 10 mg PO QD Novalog 20U AM and 30U PM Gabapentin 600 mg BID Quit taking Metformin 500mg po bid 2 weeks ago without informing her PCP Allergies: NKDA Present on Admission - Present on Admission Any Indicators Present on Admission: Yes History of Uncontrolled Diabetes: Yes Review of Systems - Review of Systems All systems: reviewed and no additional remarkable complaints except (as per HPI ) Past Patient History - Infectious Disease Hx of Infectious Diseases: None - Tetanus Immunizations Tetanus Immunization: Unknown - Past Medical History & Family History Past Medical History?: Yes - Past Social History Smoking Status: Never Smoked - CARDIAC Hx Cardiac Disorders: No - PULMONARY Hx Respiratory Disorders: No - NEUROLOGICAL Hx Neurological Disorder: No - HEENT Hx HEENT Problems: No - RENAL Hx Chronic Kidney Disease: No - ENDOCRINE/METABOLIC Hx Endocrine Disorders: Yes Hx Diabetes Mellitus Type 1: Yes Hx Diabetes Mellitus Type 2: Yes Other/Comment: Questionable pancreatic CA - HEMATOLOGICAL/ONCOLOGICAL Hx Blood Disorders: No - INTEGUMENTARY Hx Dermatological Problems: No - MUSCULOSKELETAL/RHEUMATOLOGICAL Hx Musculoskeletal Disorders: Yes Hx Arthritis: Yes - GASTROINTESTINAL Hx Gastrointestinal Disorders: Yes Other/Comment: RECTAL BLEEDING - GENITOURINARY/GYNECOLOGICAL Hx Genitourinary Disorders: No - PSYCHIATRIC Hx Psychophysiologic Disorder: No Hx Substance Use: No - SURGICAL HISTORY Other/Comment: R chest port removed. R breast biopsy - ANESTHESIA Hx Anesthesia: Yes Hx Anesthesia Reactions: No Hx Malignant Hyperthermia: No Meds Allergies/Adverse Reactions: Allergies Allergy/AdvReac Type Severity Reaction Status Date / Time No Known Allergies Allergy Verified 09/13/16 20:49 Physical Exam - Constitutional Appears: Non-toxic, No Acute Distress - Head Exam Head Exam: ATRAUMATIC, NORMAL INSPECTION, NORMOCEPHALIC - Eye Exam Eye Exam: EOMI, Normal appearance - ENT Exam ENT Exam: Mucous Membranes Moist, Normal Oropharynx - Neck Exam Neck exam: Positive for: Normal Inspection. Negative for: Lymphadenopathy, Tenderness - Respiratory Exam Respiratory Exam: Clear to Auscultation Bilateral, NORMAL BREATHING PATTERN. absent: Accessory Muscle Use, Rales, Rhonchi, Wheezes, Respiratory Distress - Cardiovascular Exam Cardiovascular Exam: RRR, +S1, +S2. absent: Bradycardia, Tachycardia, Diastolic murmur, Gallop, Rubs, Systolic Murmur - GI/Abdominal Exam GI & Abdominal Exam: Normal Bowel Sounds, Soft. absent: Distended, Guarding, Tenderness - Extremities Exam Extremities exam: Positive for: tenderness (lateral aspect of both feet ). 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 Monique) - recs appreciated * CXR: no active disease * D-dimer WNL * Trop negative x1 * f/u 21:00 and 03:00 trops * BNP: 34.9 * LDH: 319 * CK: 21 * UDS: negative * UA: negative * f/u echo * Meds: * Aspirin 81 mg QD * Lisinopril 2.5 mg QD Abdominal pain * Lipase 220 * Will continue with serial abdominal exams * Consider CTA if AFib Diabetes * Continue Jardiance & Gabapentin * ISS * Accuchecks ACHS * f/u HbA1c Prophylaxis * SCDs * Heparin * Pepcid Discussed with Dr. Kim
--- NOTE | 2017-01-07 19:47 | CARD ---
APPROVED REPORT EKG Measurement Heart [id number] [id number] <Conclusion> Normal sinus rhythm Cannot rule out Inferior infarct, age undetermined Cannot rule out Anterior infarct, age undetermined Abnormal ECG
[2017-01-07 21:34] LABS: TROPONIN I < 0.01 ng/mL
[2017-01-07] MEDS: Insulin Reg-MEDIUM-Coverage SC SCH (23:06)
[2017-01-07] MEDS ORDERED: Pneumococcal 23-Valent Vaccine IM ONE (23:09)
[2017-01-07] MEDS ORDERED: Influenza Vaccine 60 mcg/0.5 mL SYR (4YR UP) IM ONE (23:09)
[2017-01-08 00:08] VITALS: O2SAT 97
[2017-01-08 04:20] LABS: ALKALINE PHOSPHATASE 93 U/L (38-126); ALT/SGPT 30 U/L (7-56); AST/SGOT 17 U/L (14-36); BILIRUBIN,TOTAL 0.4 mg/dL (0.2-1.3); BLOOD UREA NITROGEN 14 mg/dL (7-21); CALCIUM 8.6 mg/dL (8.4-10.5); CARBON DIOXIDE 24 mmol/L (21-33); CHLORIDE 109 mmol/L (98-107); GFR AFRICAN-AMERICAN > 60; GLUCOSE,RANDOM 216 mg/dL (70-110); MAGNESIUM 1.8 mg/dL (1.7-2.2); PHOSPHOROUS 4.2 mg/dL (2.5-4.5); POTASSIUM 3.8 mmol/L (3.6-5.0); SODIUM 140 mmol/L (132-148); TOTAL PROTEIN 6.6 g/dL (5.8-8.3)
[2017-01-08 04:30] LABS: TROPONIN I < 0.01 ng/mL
[2017-01-08 04:33] LABS: BASO # 0.01 K/mm3 (0.0-2.0); BASO % 0.1 % (0.0-3.0); EOS # 0.7 (0.0-0.7); EOS % 9.2 % (1.5-5.0); GRAN # 3.47 (1.4-6.5); GRAN % 44.3 % (50.0-68.0); HEMATOCRIT 33.1 % (36.0-48.0); LYMPH # 3.1 (1.2-3.4); LYMPH % 39.6 % (22.0-35.0); MEAN CELL VOLUME 86.2 fl (80.0-105.0); MEAN CORPUSCULAR HEMOGLOBIN 28.1 pg (25.0-35.0); MEAN CORPUSCULAR HGB CONC 32.6 g/dl (31.0-37.0); MONO # 0.5 (0.1-0.6); MONO % 6.8 % (1.0-6.0); RED CELL DISTRIBUTION WIDTH 14.1 % (11.5-14.5); WHITE BLOOD COUNT 7.8 10^3/ul (4.5-11.0)
[2017-01-08] MEDS: Insulin Reg-MEDIUM-Coverage SC SCH ×2 (09:42→12:27)
[2017-01-08] MEDS ORDERED: Non Formulary Medication (Empagliflozin [Jardiance] 10 MG) PO SCH (10:00)
[2017-01-08 12:52] VITALS: BP 99/62; PULSE 66; RESP 20; TEMP 98.3
--- NOTE | 2017-01-08 15:00 | CP.PCM.DIS ---
Provider - Provider Date of Admission: 01/07/17 16:34 Attending physician: Garett Feliz MD Primary care physician: Garett Purcell DO Consults: Cardiology Time Spent in preparation of Discharge (in minutes): 40 Hospital Course - Lab Results Lab Results: Most Recent Lab Values WBC 7.8 10^3/ul (4.5-11.0) 01/08/17 03:40 RBC 3.84 10^6/uL (3.5-6.1) 01/08/17 03:40 Hgb 10.8 g/dL (12.0-16.0) L 01/08/17 03:40 Hct 33.1 % (36.0-48.0) L 01/08/17 03:40 MCV 86.2 fl (80.0-105.0) 01/08/17 03:40 MCH 28.1 pg (25.0-35.0) 01/08/17 03:40 MCHC 32.6 g/dl (31.0-37.0) 01/08/17 03:40 RDW 14.1 % (11.5-14.5) 01/08/17 03:40 Plt Count 233 10^3/uL (120.0-450.0) 01/08/17 03:40 MPV 9.0 fl (7.0-11.0) 01/08/17 03:40 Gran % 44.3 % (50.0-68.0) L 01/08/17 03:40 Lymph % (Auto) 39.6 % (22.0-35.0) H 01/08/17 03:40 [place] % (Auto) 6.8 % (1.0-6.0) H 01/08/17 03:40 Eos % (Auto) 9.2 % (1.5-5.0) H 01/08/17 03:40 Baso % (Auto) 0.1 % (0.0-3.0) 01/08/17 03:40 Gran # 3.47 (1.4-6.5) 01/08/17 03:40 Lymph # 3.1 (1.2-3.4) 01/08/17 03:40 [place] # 0.5 (0.1-0.6) 01/08/17 03:40 Eos # 0.7 (0.0-0.7) 01/08/17 03:40 Baso # 0.01 K/mm3 (0.0-2.0) 01/08/17 03:40 PT 12.3 SECONDS (9.4-12.5) 01/07/17 15:14 INR 1.13 (0.93-1.08) H 01/07/17 15:14 APTT 33.7 Seconds (25.1-36.5) 01/07/17 15:14 D-Dimer, Quantitative < 200 ng/mL (0-243) 01/07/17 15:14 Sodium 140 mmol/L (132-148) 01/08/17 03:40 Potassium 3.8 mmol/L (3.6-5.0) 01/08/17 03:40 Chloride 109 mmol/L (98-107) H 01/08/17 03:40 Carbon Dioxide 24 mmol/L (21-33) 01/08/17 03:40 Anion Gap 10 (10-20) 01/08/17 03:40 BUN 14 mg/dL (7-21) 01/08/17 03:40 Creatinine 0.5 mg/dl (0.7-1.2) L 01/08/17 03:40 Est GFR ( Amer) > 60 01/08/17 03:40 Est GFR (Non-Af Amer) > 60 01/08/17 03:40 POC Glucose (mg/dL) 233 mg/dL (65-110) H 01/07/17 22:10 Random Glucose 216 mg/dL (70-110) H 01/08/17 03:40 Hemoglobin A1c 11.7 % (4.2-6.5) H D 01/08/17 03:40 Calcium 8.6 mg/dL (8.4-10.5) 01/08/17 03:40 Phosphorus 4.2 mg/dL (2.5-4.5) 01/08/17 03:40 Magnesium 1.8 mg/dL (1.7-2.2) 01/08/17 03:40 Total Bilirubin 0.4 mg/dL (0.2-1.3) 01/08/17 03:40 AST 17 U/L (14-36) 01/08/17 03:40 ALT 30 U/L (7-56) 01/08/17 03:40 Alkaline Phosphatase 93 U/L (38-126) 01/08/17 03:40 Lactate Dehydrogenase 293 U/L (333-699) L 01/08/17 03:40 Total Creatine Kinase < 20 U/L (35-230) L 01/08/17 03:40 Troponin I < 0.01 ng/mL 01/08/17 03:40 NT-Pro-B Natriuret Pep 34.9 pg/mL (0-450) 01/07/17 15:14 Total Protein 6.6 g/dL (5.8-8.3) 01/08/17 03:40 Albumin 3.4 g/dL (3.0-4.8) 01/08/17 03:40 Globulin 3.2 gm/dL 01/08/17 03:40 Albumin/Globulin Ratio 1.0 (1.1-1.8) L 01/08/17 03:40 Lipase 220 U/L (23-300) 01/07/17 15:14 Urine Color Yellow (YELLOW) 01/07/17 16:00 Urine Appearance Clear (CLEAR) 01/07/17 16:00 Urine pH 6.0 (4.7-8.0) 01/07/17 16:00 Ur Specific [place] 1.010 (1.005-1.035) 01/07/17 16:00 Urine Protein Negative mg/dL (<30 mg/dL) 01/07/17 16:00 Urine Glucose (UA) >=1000 mg/dL (NEGATIVE) 01/07/17 16:00 Urine Ketones Negative mg/dL (NEGATIVE) 01/07/17 16:00 Urine Blood Negative (NEGATIVE) 01/07/17 16:00 Urine Nitrate Negative (NEGATIVE) 01/07/17 16:00 Urine Bilirubin Negative (NEGATIVE) 01/07/17 16:00 Urine Urobilinogen 0.2 E.U./dL (<1 E.U./dL) 01/07/17 16:00 Ur Leukocyte Esterase Negative Donna/uL (NEGATIVE) 01/07/17 16:00 Urine Opiates Screen Negative (NEGATIVE) 01/07/17 16:00 Urine Methadone Screen Negative (NEGATIVE) 01/07/17 16:00 Ur Barbiturates Screen Negative (NEGATIVE) 01/07/17 16:00 Ur Phencyclidine Scrn Negative (NEGATIVE) 01/07/17 16:00 Ur Amphetamines Screen Negative (NEGATIVE) 01/07/17 16:00 U Benzodiazepines Scrn Negative (NEGATIVE) 01/07/17 16:00 U Oth Cocaine Metabols Negative (NEGATIVE) 01/07/17 16:00 U Cannabinoids Screen Negative (NEGATIVE) 01/07/17 16:00 - Hospital Course Hospital Course: 61F with PMH of uncontrolled IDDM who presents complaining of palpitations x3 days. In the ED basic lab work was done. EKG was done and was negative for any acute ST or T wave abnormality. Troponin x 1 was negative. D-Dimer was negative. Pt was admitted to [facility] and cardiology was consulted. Troponin x 3 was negative. Echo was ordered. Cardiology saw the patient and recommended outpatient stress test which will be scheduled next week . Pt Hba1c was 11.7. Pt was counselled extensively with all the complications of having uncontrolled DM. I recommended the patient being compliant with her Insulin and strict follow up with her PMD as well as seeing an data typist. Pt understood the importance of controlling her DM. Pt was started on Aspirin and Lisinopril as nephro protective. Today she feels much better. She states that her symptoms have mostly resolved. Denies any [place], dizziness, f/c, sob, cp, abd pain, n/v/d. Discharge Exam - Head Exam Head Exam: ATRAUMATIC, NORMAL INSPECTION, NORMOCEPHALIC - Eye Exam Eye Exam: EOMI, PERRL Pupil Exam: NORMAL ACCOMODATION - ENT Exam ENT Exam: Mucous Membranes Moist - Respiratory Exam Respiratory Exam: Clear to PA & Lateral. absent: Wheezes - Cardiovascular Exam Cardiovascular Exam: REGULAR RHYTHM, RRR, +S1, +S2 - GI/Abdominal Exam GI & Abdominal Exam: Normal Bowel Sounds, Soft. absent: Tenderness - Neurological Exam Neurological exam: Alert, Oriented x3 - Psychiatric Exam Psychiatric exam: Normal Affect, Normal Mood - Skin Skin Exam: Dry, Intact, Warm Discharge Plan - Discharge Medications Prescriptions: Aspirin [Aspirin Chewable] 81 mg PO DAILY #30 chew Famotidine [Pepcid] 20 mg PO DAILY #30 tab Lisinopril [Zestril] 2.5 mg PO DAILY #30 tab Polyethylene Glycol 3350 [Miralax] 17 gm PO BID 30 Days ml - Follow Up Plan Condition: FAIR Disposition: HOME/ ROUTINE Patient education suggested?: Yes Instructions: Chest Pain (DC), Chest Pain (GEN) Additional Instructions: Schedule for a home school coordinator for an outpatient stress test. Follow up with your Primary Medical Doctor within 3-5 days, and an data typist of her choice for tighter blood sugar control. Strict medicine compliance and lifestyle modification - elevated blood sugars and Hba1c. If your symptoms recur, come back to the closest Emergency Department. Take your medications as prescribed. Referrals: Garett Purcell DO [Primary Care Provider] - Damaso Monique MD [Staff Provider] -
--- NOTE | 2017-01-08 20:47 | CARD ---
APPROVED REPORT EXAM: Two-dimensional and M-mode echocardiogram with Doppler and color Doppler. INDICATION LV Function:SystolicDiastolic Palpitations 2D DIMENSIONS Left Atrium (2D)3.1 (1.6-4.0cm)IVSd1.1 (0.7-1.1cm) LVDd3.7 (3.9-5.9cm)PWd1.1 (0.7-1.1cm) LVDs2.3 (2.5-4.0cm)FS (%) 37.5 % LVEF (%)68.6 (>50%) M-Mode DIMENSIONS Aortic Root2.10 (2.2-3.7cm)Aortic Cusp Exc.1.70 (1.5-2.0cm) Aortic Valve AoV Peak Nyrvogkd608.0cm/Ludmila Peak GR.5mmHg Mitral Valve E/A ratio0.0 TDI E/Lateral E'0.0E/Medial E'0.0 Tricuspid Valve TR Peak [id number]/sRAP [id number] Peak Gr.17mmHg [id number] LEFT VENTRICLE The left ventricle is normal size. There is normal left ventricular wall thickness. The left ventricular function is normal. The left ventricular ejection fraction is within the normal range. There is normal LV segmental wall motion. Transmitral Doppler flow pattern is Grade I-abnormal relaxation pattern. RIGHT VENTRICLE The right ventricle is normal size. There is normal right ventricular wall thickness. The right ventricular systolic function is normal. ATRIA The left atrium size is normal. The right atrium size is normal. AORTIC VALVE The aortic valve is normal in structure. There is no aortic valvular stenosis. MITRAL VALVE The mitral valve is normal in structure. There is no mitral valve regurgitation noted. TRICUSPID VALVE The tricuspid valve is normal in structure. GREAT VESSELS The aortic root is normal in size. The IVC is normal in size and collapses >50% with inspiration. <Conclusion> The left ventricle is normal size. There is normal left ventricular wall thickness. The left ventricular function is normal. The left ventricular ejection fraction is within the normal range. There is normal LV segmental wall motion. Transmitral Doppler flow pattern is Grade I-abnormal relaxation pattern.
--- NOTE | 2017-01-08 21:15 | CON ---
DATE: 01/08/2017 HISTORY: The patient is a 61-year-old woman who presents with palpitations and headaches. There is atypical chest pain noted. Currently, the patient is completely asymptomatic. PAST MEDICAL HISTORY: Includes diabetes mellitus. No previous cardiac history and no previous myocardial infarction in the past. SOCIAL HISTORY: The patient does not smoke. REVIEW OF SYSTEMS: A 14-point review of systems was reviewed in detail. There are no cardiac symptoms noted at this time. PHYSICAL EXAMINATION: VITAL SIGNS: Blood pressure is 99/62, heart rate in the 60s. NECK: Negative JVD. LUNGS: Without rales. HEART: With S1, S2. EXTREMITIES: Without edema. EKG shows no acute changes. LABORATORY DATA: The hemoglobin is 10.8. Troponins are negative x2. The ProBNP is 34. Preliminary echocardiogram reveals good LV function with LVH. IMPRESSION: 1. Palpitations. 2. No evidence for acute coronary syndrome. 3. Atypical chest pain. 4. Diabetes mellitus. 5. Headache. Given these findings, the patient's cardiac status is stable. From a cardiac perspective, the patient can be discharged. We will bring the patient back next week for a stress test. The patient is agreeable, and the patient wants to go home today. Damaso Monique MD
--- NOTE | 2017-01-08 23:44 | CARD ---
APPROVED REPORT EKG Measurement Heart [id number] ME 156P6 [id number] <Conclusion> Normal sinus rhythm Normal ECG
== END 2017-01-08 15:31 | disposition home or self-care (01) ==
LOC: ED 14:18 → ERH 16:34 → 3RSO 19:29
PROVIDERS: ADMIT Internal Medicine; ATTEND Internal Medicine
DX: R07.89 Other chest pain (principal); R00.2 Palpitations; E11.65 Type 2 diabetes mellitus with hyperglycemia; E11.42 Type 2 diabetes mellitus with diabetic polyneuropathy; Z79.4 Long term (current) use of insulin; R51 Headache; K59.00 Constipation, unspecified
CPT/HCPCS: 36415; 71010; 80053; 81003; 82550; 82948; 83036; 83615; 83690; 83735; 83880; 84100; 84484; 85025; 85378; 85610; 85730; 93005; 93306; 96360; 96374; 99285; G0378; G0480; J1644; J7040